=== PATIENT | male | born 1955 | race Caucasian/White ===

== ENCOUNTER 2018-12-18 18:48 | Inpatient (IN) | payer BC, OTHER ==
[~2018-12-18] VITALS: Ht 177.8 cm; Wt 79.4 kg
[~2018-12-18 18:48] MED LIST: D-ME473S2 PO; LEVO500T48 PO; OMEP20CA9 PO
[2018-12-18 19:07] VITALS: Ht 177.8 cm; Wt 79.4 kg
[2018-12-18] MEDS ORDERED: ACETAMINOPHEN 325 MG TAB PO STA (19:07)
[2018-12-18] MEDS ORDERED: CEFTRIAXONE 1 GM/50 ML (PMX) 50 ML IVPB STA (19:07)
[2018-12-18] MEDS ORDERED: SODIUM CHLORIDE 0.9% 1L BAG IV* STA (19:33)
[2018-12-18] MEDS ORDERED: ACETAMINOPHEN 325 MG TAB PO PRN (20:30)
[2018-12-18] MEDS ORDERED: ONDANSETRON 4 MG INJ IV PRN (20:30)
[2018-12-18] MEDS ORDERED: AZITHROMYCIN 500MG/NS (PMX) 250 ML IVPB ONE (20:30)
[2018-12-18] MEDS ORDERED: LIDOCAINE/MYLANTA 40 ML BTL PO STA (20:37)
[2018-12-18] MEDS ORDERED: BELLADONNA/PHENOBARBITAL TAB PO STA (20:37)
--- NOTE | 2018-12-18 21:40 | ERD ---
ER Documentation Chief Complaint Chief Complaint FEVER, BODY ACHES, VOMIT X'S 1 DAY HPI Patient is a 63-year-old male with a previous history of pneumonia presents with fever and chills. He said that it started this evening around 6:15 PM. He had shaking chills. He reports a cough as well but thought that it might be related to the MARCELA inhibitor that he is on. He was not feeling well though so he came to the emergency department with his . His heart rate was fast as well. He has had no treatment for the symptoms as of yet. He denies urinary symptoms. Symptoms have been constant. ROS All systems reviewed and are negative except as per history of present illness. Medications Home Meds Reported Medications Omeprazole* (Prilosec*) 20 Mg Capsule.dr, 20 MG PO DAILY, CAP 04/27/14 Dextromethorphan Hb-Promethazine Hcl* (Promethazine DM* Syrup) 473 Ml Syrup, 5 ML PO Q6 PRN for COUGH, ML 04/27/14 Levofloxacin* (Levaquin*) 500 Mg Tablet, 500 MG PO DAILY for 7 Days, TAB 04/27/14 Allergies Allergies: Coded Allergies: prochlorperazine (Verified Allergy, Unknown, 04/27/14) hyperactive PMhx/Soc Medical and Surgical Hx: pt denies Medical Hx, pt denies Surgical Hx Hx Alcohol Use: No Hx Substance Use: No Hx Tobacco Use: No Smoking Status: Never smoker FmHx Family History: No diabetes Physical Exam Vitals Vital Signs Date Temp Pulse Resp B/P (MAP) Pulse Ox O2 O2 Flow FiO2 Time Delivery Rate 12/18/18 101.0 120 24 132/79 95 Room Air 21:33 (96) 12/18/18 124 15 130/82 96 Room Air 20:19 (98) 12/18/18 102.4 129 20 172/91 96 19:07 (118) Physical Exam Const: Mild distress Head: Atraumatic Eyes: Normal Conjunctiva ENT: Normal External Ears, Nose and Mouth. Neck: Full range of motion. No meningismus. Resp: Decreased breath sounds bilaterally Cardio: Tachycardic rate without murmur Abd: Soft, non tender, non distended. Normal bowel sounds Skin: No petechiae or rashes Back: No midline or flank tenderness Ext: No cyanosis, or edema Neur: Awake and alert Psych: Normal Mood and Affect Result Diagram: 12/18/18191512/18/181915 Results 24 hrs Laboratory Tests Test 12/18/18 17:46 12/18/18 19:16 12/18/18 19:22 12/18/18 21:06 Urine Color STRAW Urine Clarity CLEAR Urine pH 6.0 Urine Specific 1.012 [place] Urine Ketones TRACE mg/dL Urine Nitrite NEGATIVE mg/dL Urine Bilirubin NEGATIVE mg/dL Urine NEGATIVE mg/dL Urobilinogen Urine Leukocyte NEGATIVE Melissa/ul Esterase Urine Hemoglobin NEGATIVE mg/dL Urine Glucose NEGATIVE mg/dL Urine Total NEGATIVE mg/dl Protein White Blood Count 20.6 10^3/ul Red Blood Count 4.45 10^6/ul Hemoglobin 13.7 g/dl Hematocrit 41.2 % Mean Corpuscular 92.6 fl Volume Mean Corpuscular 30.8 pg Hemoglobin Mean Corpuscular 33.3 g/dl Hemoglobin Concen t Red Cell 12.4 % Distribution Width Platelet Count 291 10^3/UL Mean Platelet 9.6 fl Volume Immature 0.500 % Granulocytes % Neutrophils % 89.1 % Lymphocytes % 3.2 % Monocytes % 6.7 % Eosinophils % 0.2 % Basophils % 0.3 % Nucleated Red 0.0 /100WBC Blood Cells % Immature 0.110 10^3/ul Granulocytes # Neutrophils # 18.3 10^3/ul Lymphocytes # 0.7 10^3/ul Monocytes # 1.4 10^3/ul Eosinophils # 0.1 10^3/ul Basophils # 0.1 10^3/ul Nucleated Red 0.0 10^3/ul Blood Cells # Prothrombin Time 12.0 Sec Prothrombin Time 0.9 Ratio INR International 0.88 Normalized Ratio Activated 25.7 Sec Partial Thrombopl ast Time Sodium Level 138 mmol/L Potassium Level 4.4 mmol/L Chloride Level 100 mmol/L Carbon Dioxide 26 mmol/L Level Anion Gap 12 Blood Urea 16 mg/dl Nitrogen Creatinine 1.15 mg/dl Est Glomerular > 60 mL/min Filtrat Rate mL/min Glucose Level 98 mg/dl Calcium Level 9.5 mg/dl Total Bilirubin 0.5 mg/dl Direct Bilirubin 0.00 mg/dl Indirect 0.5 mg/dl Bilirubin Aspartate Amino 22 IU/L Transf (AST/SGOT) Alanine 15 IU/L Aminotransferase (ALT/SGPT) Alkaline 84 IU/L Phosphatase Troponin I < 0.012 ng/ml Total Protein 8.4 g/dl Albumin 4.7 g/dl Globulin 3.70 g/dl Albumin/Globulin 1.27 Ratio POC Venous 1.6 mmol/L Lactate Lactic Acid Level 2.0 mmol/L Current Medications Medications Dose Sig/Lionel Start Time Status Last (Trade) Ordered Route PRN Stop Time Admin Dose Reason Admin 650 mg ONCE STAT 12/18/18 DC 12/18/18 Acetaminophen PO 19:07 19:38 (Tylenol 12/18/18 19:08 Tab) Ceftriaxone 50 ml @ ONCE STAT 12/18/18 DC 12/18/18 Sodium 100 mls/hr IVPB 19:07 19:38 12/18/18 19:36 Sodium 2,380 ml BOLUS OVER 2 12/18/18 DC 12/18/18 Chloride HOURS STAT 19:33 19:37 (NS) IV* 12/18/18 19:35 Azithromycin 250 ml @ ONCE ONCE 12/18/18 DC 12/18/18 250 mls/hr IVPB 20:30 20:51 12/18/18 21:29 Ondansetron 4 mg BRIDGE ORDER 12/18/18 HCl (Zofran PRN IV 20:30 Inj) NAUSEA/VOMITI 12/19/18 20:29 NG 650 mg ER BRIDGE 12/18/18 Acetaminophen PRN PO 20:30 (Tylenol .MILD PAIN 12/19/18 20:29 Tab) 1-3 OR TEMP 40 ml ONCE STAT 12/18/18 DC 12/18/18 Miscellaneous PO 20:37 20:51 Medication 12/18/18 20:38 (Gi Cocktail (2)) [place]/ 2 tab ONCE STAT 12/18/18 DC Phenobarbital PO 20:37 () 12/18/18 20:38 Procedures/MDM EKG read by me: Rate/Rhythm: Sinus tachycardia Intervals: Normal Impression: Tachycardia without ischemia Chest X-ray 1V Interpreted by me: Soft Tissue: No acute abnormalities Bones: No acute abnormalities Mediastinum/Cardiac Silhouette/Lungs: Mild right lower lobe haziness consistent with infiltrate Sepsis Documentation: Patient's infectious symptoms have not stabilized and the patient is at risk of rapid decompensation. The patient will be admitted for careful hydration, antibiotic therapy, and infectious source control. SEVERE SEPSIS CRITERIA: Infectious source: Pneumonia End organ damage indicated by: No endorgan damage at this time SEPSIS MANAGEMENT Time of recognition of sepsis: 1915. Time of recognition of severe sepsis: No severe sepsis at this time. Time of recognition of septic shock: No septic shock at this time. 3 HOUR BUNDLE Blood cultures x 2 before broad-spectrum antibiotics: Yes 30 ml/kg NS bolus completed Initial lactate 1.6 Repeat lactate 2.0 SEPTIC SHOCK ASSESSMENT: No lactic acid > 4.0 No persistent hypotension (SBP < 90 or 40 mmHg drop, MAP < 65) despite 30 mL/kg IV fluid bolus VOLUME REASSESSMENT FOR SEPTIC SHOCK: No septic shock at this time PERSISTENT HYPOTENSION TREATMENT: Comfort care no Central line not Required Vasopressor started not required I considered further perfusion assessment with CVP measurement, SCVO2, bedside ultrasound volume assessment, passive leg raise, trial of further fluid bolus. And proceeded with 30 ml/kg fluid bolus of NSS, broad spectrum antibiotics, and admission. I spoke with Dr. Funes from the panel team to admission to a medical surgical bed. The patient feels better after treatment with Tylenol, fluids, and antibiotics. Cultures are pending. CRITICAL CARE Critical care time 35 minutes Emergent fluid management while maintaining close respiratory support. Provision of immediate and broad-spectrum antibiotic therapy. Simultaneous assessment for possible sources in order to direct targeted therapy. Consideration for invasive and chemical support to prevent cardiopulmonary collapse. Critical care time is independent of procedures performed. Departure Diagnosis: Primary Impression: Sepsis Sepsis type: sepsis due to unspecified organism Qualified Codes: A41.9 - Sepsis, unspecified organism Condition: DRU Arce MD Dec 18, 2018 21:40
[2018-12-18 22:20] VITALS: BP 123/67; PULSE 117; RESP 18
--- NOTE | 2018-12-18 23:54 | HP ---
Date/Time of Note Date/Time of Note DATE: 12/18/18 TIME: 23:54 Assessment/Plan VTE Prophylaxis Pharmacological prophylaxis: heparin Lines/Catheters IV Catheter Type (from Nrs): [place] Assessment/Plan Assessment/Plan Sepsis, questionable respiratory source -IV fluid -IV antibiotic -Cultures pending -Infectious disease on board Bacteremia -Only 1 culture positive so far, likely contaminant however due to significant elevation of white count, may possibly be real -Infectious disease on board -Repeat cultures Anemia -Mild -Monitor outpatient Result Diagram: 12/18/18 1916 12/18/18 1916 Results 24hrs Laboratory Tests Test 12/18/18 17:46 12/18/18 19:16 12/18/18 19:22 12/18/18 21:06 Urine Color STRAW Urine Clarity CLEAR Urine pH 6.0 Urine Specific 1.012 [place] Urine Ketones TRACE A Urine Nitrite NEGATIVE Urine Bilirubin NEGATIVE Urine Urobilinogen NEGATIVE Urine Leukocyte NEGATIVE Esterase Urine Hemoglobin NEGATIVE Urine Glucose NEGATIVE Urine Total Protein NEGATIVE White Blood Count 20.6 #H Red Blood Count 4.45 L Hemoglobin 13.7 L Hematocrit 41.2 L Mean Corpuscular 92.6 Volume Mean Corpuscular 30.8 Hemoglobin Mean Corpuscular 33.3 Hemoglobin Concent Red Cell 12.4 Distribution Width Platelet Count 291 Mean Platelet Volume 9.6 Immature 0.500 H Granulocytes % Neutrophils % 89.1 H Lymphocytes % 3.2 L Monocytes % 6.7 Eosinophils % 0.2 Basophils % 0.3 Nucleated Red Blood 0.0 Cells % Immature 0.110 H Granulocytes # Neutrophils # 18.3 H Lymphocytes # 0.7 L Monocytes # 1.4 H Eosinophils # 0.1 Basophils # 0.1 Nucleated Red Blood 0.0 Cells # Prothrombin Time 12.0 Prothrombin Time 0.9 Ratio INR International 0.88 Normalized Ratio Activated 25.7 Partial Thromboplast Time Sodium Level 138 Potassium Level 4.4 Chloride Level 100 Carbon Dioxide Level 26 Anion Gap 12 Blood Urea Nitrogen 16 Creatinine 1.15 Est Glomerular > 60 Filtrat Rate mL/min Glucose Level 98 Calcium Level 9.5 Total Bilirubin 0.5 Direct Bilirubin 0.00 Indirect Bilirubin 0.5 Aspartate Amino 22 Transf (AST/SGOT) Alanine 15 Aminotransferase (AL T/SGPT) Alkaline Phosphatase 84 Troponin I < 0.012 Total Protein 8.4 H Albumin 4.7 Globulin 3.70 H Albumin/Globulin 1.27 Ratio POC Venous Lactate 1.6 Lactic Acid Level 2.0 Test 12/18/18 23:01 Bedside Glucose 101 HPI/ROS Admit Date/Time Admit Date/Time Dec 18, 2018 at 20:30 Hx of Present Illness This is a 63-year-old male with a history of hypertension, anemia, GERD, prostate cancer status post removal in March of last year. Patient presents the ER complaining of fever/chills, shortness of breath, dry cough, which started few hours ago around 1700. He also reported lack of energy and vague muscular type pain in the groin area and in the upper thigh, which she attributed to possible flu. He said he checked his temperature at home. Initially it was 100.8 with repeat being around 101.4. Denied sick contact, recent travel. He said he had similar symptoms 5 years ago for which he said he came to the hospital and was treated for pneumonia in the ER. When he presented to the ER, he was febrile with a temperature of 102.4, ta chycardic with a heart rate of 129. Blood pressure 172/91. WBC 20,000. PMH/Family/Social Past Medical History Medical History: other (See HPI) Medications Current Medications Ondansetron HCl (Zofran Inj) 4 mg BRIDGE ORDER PRN IV NAUSEA/VOMITING; Start 12/18/18 at 20:30; Stop 12/19/18 at 20:29 Acetaminophen (Tylenol Tab) 650 mg ER BRIDGE PRN PO .MILD PAIN 1-3 OR TEMP; Start 12/18/18 at 20:30; Stop 12/19/18 at 20:29 Coded Allergies: prochlorperazine (Verified Allergy, Unknown, 12/26/18) hyperactive Past Surgical History Past Surgical Hx: other (See HPI) Family History Significant Family History: no pertinent family hx Social History Alcohol Use: none Smoking Status: Never smoker Drug Use: none Exam/Review of Systems Vital Signs Vitals Vital Signs Date Temp Pulse Resp B/P (MAP) Pulse Ox O2 O2 Flow FiO2 Time Delivery Rate 12/18/18 99.7 23:14 12/18/18 115 24 132/79 96 Room Air 22:23 (96) Exam Constitutional: alert, oriented, well developed Head: normocephalic, atraumatic Eyes: EOMI, PERRL Respiratory: clear to auscultation, normal air movement Cardiovascular: other (Tachycardic with regular rhythm) Gastrointestinal: soft Extremities: normal pulses GAURI MUÑOZ MD Dec 18, 2018 23:54
[2018-12-19] MEDS ORDERED: ZOLPIDEM 5 MG TAB PO PRN
[2018-12-19] MEDS ORDERED: IPRATROPIUM (NEB) 0.5 MG/2.5 ML AMP NEB PRN
[2018-12-19] MEDS ORDERED: NACL 0.9% 3 ML SYG IV SCH
[2018-12-19] MEDS ORDERED: LISI40TA3 PO (00:08)
[2018-12-19] MEDS ORDERED: CHOL100062 PO (00:08)
[2018-12-19] MEDS ORDERED: ALPR0.25 PO (00:08)
[2018-12-19] MEDS ORDERED: SILD20TA PO (00:08)
[2018-12-19] MEDS ORDERED: ASPI-676 PO (00:08)
[2018-12-19] MEDS ORDERED: KETO120S3 (00:08)
[2018-12-19] MEDS ORDERED: PRAV10TA43 PO (00:08)
[2018-12-19] MEDS: SOD CHLORIDE 0.9% 1,000 ML IV SCH ×2 (00:09→10:36)
[2018-12-19] MEDS ORDERED: DIPHENHYDRAMINE 50 MG CAP PO ONE (01:30)
[2018-12-19 02:00] VITALS: BP 127/70; PULSE 102; RESP 18
[2018-12-19] MEDS: PANTOPRAZOLE (EC) 40 MG TAB PO SCH (06:00)
[2018-12-19] MEDS ORDERED: CEFTRIAXONE 1 GM/50 ML (PMX) 50 ML IVPB SCH (06:00)
[2018-12-19 08:15] VITALS: BP 151/74; PULSE 110; RESP 18
[2018-12-19] MEDS: HEPARIN 5,000 UNIT/1 ML VIAL SC SCH ×2 (08:31→20:32)
[2018-12-19] MEDS ORDERED: NON-FORMULARY/PATIENT OWN MED (Omeprazole* (Prilosec*) 20 MG) PO SCH (09:00)
[2018-12-19] MEDS: ACETAMINOPHEN 325 MG TAB PO PRN ×3 (09:17→21:43)
[2018-12-19] MEDS ORDERED: VANCOMYCIN IV PER PHARMACY XX SCH (10:30)
[2018-12-19] MEDS: LEVOFLOXACIN 500MG/D5W (PMX) 100 ML IVPB SCH (10:37)
[2018-12-19] MEDS: LISINOPRIL 20 MG TAB PO SCH (10:56)
[2018-12-19] MEDS ORDERED: LEVOFLOXACIN 750MG/D5W (PMX) 150 ML IVPB SCH (11:00)
[2018-12-19] MEDS ORDERED: VANCOMYCIN HCL 1.5 GM in SOD CHLORIDE 0.9% 250 ML IVPB SCH (13:00)
[2018-12-19] MEDS: ONDANSETRON 4 MG INJ IV PRN (13:25)
[2018-12-19 14:00] VITALS: BP 141/75; PULSE 110; RESP 18
--- NOTE | 2018-12-19 16:19 | PN ---
Date/Time of Note Date/Time of Note DATE: 12/19/18 TIME: 16:19 Objective Vitals Vital Signs Date Temp Pulse Resp B/P (MAP) Pulse Ox O2 O2 Flow FiO2 Time Delivery Rate 12/19/18 100.5 16:12 12/19/18 110 18 141/75 95 Room Air 14:00 (97) Intake and Output 12/18/18 12/18/18 12/19/18 1515:00 23:00 07:00 IntakeIntake Total 550 ml OutputOutput Total 350 ml BalanceBalance 200 ml Results Result Diagram: 12/19/18 0556 12/19/18 0556 Medications Medications Current Medications Acetaminophen (Tylenol Tab) 650 mg ER BRIDGE PRN PO .MILD PAIN 1-3 OR TEMP Last administered on 12/19/18at 01:40; Admin Dose 650 MG; Start 12/18/18 at 20:30; Stop 12/19/18 at 20:29 Sodium Chloride 1,000 ml @ 50 mls/hr Q20H IV Last administered on 12/19/18at 10:36; Admin Dose 50 MLS/HR; Start 12/18/18 at 23:57 IV Flush (NS 3 ml) 3 ml PER PROTOCOL IV ; Start 12/19/18 at 00:00 Ondansetron HCl (Zofran Inj) 4 mg Q6H PRN IV NAUSEA/VOMITING Last administered on 12/19/18at 13:25; Admin Dose 4 MG; Start 12/19/18 at 00:00 Acetaminophen (Tylenol Tab) 650 mg Q6H PRN PO .PAIN 1-3 OR TEMP Last administered on 12/19/18at 15:41; Admin Dose 650 MG; Start 12/19/18 at 00:00 Heparin Sodium (Porcine) (Heparin (5000 Units/1ml)) 5,000 unit Q12 SC Last administered on 12/19/18at 08:31; Admin Dose 5,000 UNIT; Start 12/19/18 at 09:00 Ipratropium [place] (Atrovent 0.02% (Neb)) 0.5 mg Q2H RESP THERAPY PRN NEB SHORTNESS OF BREATH; Start 12/19/18 at 00:00 Zolpidem Tartrate (Ambien) 10 mg HS PRN PO INSOMNIA; Start 12/19/18 at 00:00 Pantoprazole (Protonix Tab) 40 mg DAILY@06 PO Last administered on 12/19/18at 06:00; Admin Dose 40 MG; Start 12/19/18 at 06:00 Alprazolam (Xanax) 0.25 mg Q8H PRN PO ANXIETY; Start 12/19/18 at 10:00 Aspirin (Aspirin) 81 mg DAILY PO ; Start 12/20/18 at 09:00 Cholecalciferol (Vitamin D) 1,000 unit DAILY PO ; Start 12/20/18 at 09:00 Atorvastatin Calcium (Lipitor) 10 mg HS PO ; Start 12/19/18 at 21:00 Vancomycin HCl (Vanco Iv Per Pharmacy) VANCOMYCIN PER PHARMACY PER PROTOCOL XX ; Start 12/19/18 at 10:30 Levofloxacin/ Dextrose 100 ml @ 100 mls/hr Q24H IVPB Last administered on 12/19/18at 10:37; Admin Dose 100 MLS/HR; Start 12/19/18 at 10:30 Lisinopril (Zestril) 40 mg DAILY PO Last administered on 12/19/18at 10:56; Admin Dose 40 MG; Start 12/19/18 at 10:30 Vancomycin HCl 250 ml @ 125 mls/hr Q12H IVPB ; Start 12/20/18 at 01:00 Ibuprofen (Motrin) 400 mg Q6H PRN PO MILD PAIN(1-3) OR TEMP>38C; Start 12/19/18 at 16:30; Status UNV VTE Prophylaxis Risk score (from [facility])>0 risk: 1 SCD applied (from [facility]): Yes Lines/Catheters IV Catheter Type: Marie in Place: No Assessment/Plan Hospital Course Subjective Patient feeling better than when he was admitted however still having occasional chills and fever Objective Physical exam General: Patient is laying in bed and answers questions appropriately Mentation: Patient is alert and oriented 4, Head: Normocephalic atraumatic Eyes: EOMI, pupils reactive to light Neck: Supple, nontender, midline Respiratory: Clear to auscultation bilaterally Cardiovascular: regular rate, no obvious murmurs Gastrointestinal: non-tender to palpation, bowel sounds heard. Neurological: Moves all extremities spontaneously Skin: No new skin lesions Assessment and plan Sepsis, questionable respiratory source versus bacteremia -IV fluid -IV antibiotic -Cultures pending -Infectious disease on board Questionable upper respiratory infection -No significant shortness of breath -However did have persistent cough preceding this admission -IV antibiotic -Chest x-ray clear -Flu negative Bacteremia -Only 1 culture positive so far, likely contaminant however due to significant elevation of white count, may possibly be real -Infectious disease on board -Repeat cultures Anemia -Mild -Monitor outpatient Disposition -Infectious disease consultation pending, continue IV antibiotics, pending culture results, unconfirmed source of infection however may possibly be a viral etiology versus a true bacteremia. MIA CAMPBELL Dec 19, 2018 16:19
[2018-12-19] MEDS ORDERED: IBUPROFEN 400 MG TAB PO PRN (16:30)
--- NOTE | 2018-12-19 16:32 | CONS ---
DATE OF ADMISSION: 12/18/2018 DATE OF CONSULTATION: 12/19/2018 TYPE OF CONSULTATION: Infectious disease. REASON FOR CONSULTATION: Antibiotic management. HISTORY OF PRESENT ILLNESS: Mia Holder is a 63-year-old male who comes in on 12/18/2018 with fev er, body aches and vomiting for 1 day. The patient has a history of pneumonia in the past, presents with fever and chills. He noted that on 12/18/2018 at 6:15 p.m. he had shaking chills. He has a cou gh, which he thought might be related to the MARCELA inhibitor that he is on. FAMILY HISTORY: Noncontributory. SOCIAL HISTORY: Does not smoke, drink or abuse drugs. ALLERGIES: PROCHLORPERAZINE, HE COMES HYPERACTIVE. MEDICATIONS: Per chart. REVIEW OF SYSTEMS: Noncontributory. PHYSICAL EXAMINATION: VITAL SIGNS: T-max of 102.4. SKIN: Without generalized rash. HEENT: Within normal limits. NECK: Supple. LYMPH NODES: None palpable. CHEST: Decreased breath sounds at the bases. HEART: Without murmur or gallop. He is tachycardic, pulse of 129. ABDOMEN: Soft, nontender without organosplenomegaly or masses. EXTREMITIES: Without cyanosis, clubbing or edema. RECTAL AND GENITAL: Deferred. NEUROLOGIC: No focal neurological abnormality. HOSPITAL COURSE: White count 20.6, H and H of 13.7 and 41.7, platelet count 291,000. BUN and creati nine is 16/1.15 with 89% neutrophils. The patient was started on ceftriaxone and azithromycin for th e possibility of community-acquired pneumonia. Blood cultures were done. Chest x-ray shows no conso lidative pulmonary infiltrates noted. No new abnormality demonstrated. Urine is negative for nitrit e and leukocyte esterase. The patient has gram-positive cocci in pairs and chains and he is on vanco mycin alone at this point. The etiology of his blood culture positivity is unclear. We will repeat the blood cultures to worry about endocarditis. He still probably has a tracheobronchitis. He may n eed a 2D echocardiogram. I will dictate my findings to the hospitalist. Dictated By: MICHELLE CONRAD MD, JD/CONRADO Conf#: [id number] DID#: [id number] CC: MIA CAMPBELL MD; GAURI MUÑOZ MD;*[facility]*
[2018-12-19 20:00] VITALS: BP 131/62; PULSE 104; RESP 18
[2018-12-19] MEDS: ATORVASTATIN 10 MG TAB PO SCH (20:31)
[2018-12-19] MEDS ORDERED: AZITHROMYCIN 500MG/NS (PMX) 250 ML IVPB SCH (21:00)
[2018-12-19] MEDS ORDERED: DIPHENHYDRAMINE 25 MG CAP PO ONE (21:30)
[2018-12-20] MEDS: VANCOMYCIN 1 GM 250 ML IVPB SCH ×2 (00:32→12:57)
[2018-12-20 02:00] VITALS: BP 91/52; PULSE 74; RESP 17
[2018-12-20] MEDS: PANTOPRAZOLE (EC) 40 MG TAB PO SCH (05:42)
[2018-12-20] MEDS: SOD CHLORIDE 0.9% 1,000 ML IV SCH ×2 (05:47→12:10)
[2018-12-20] MEDS: ACETAMINOPHEN 325 MG TAB PO PRN ×3 (08:04→20:31)
[2018-12-20] MEDS: HEPARIN 5,000 UNIT/1 ML VIAL SC SCH ×2 (08:06→20:25)
[2018-12-20] MEDS: LISINOPRIL 20 MG TAB PO SCH (08:08)
[2018-12-20 08:11] VITALS: BP 115/61; PULSE 90; RESP 24
[2018-12-20] MEDS: ASPIRIN 81 MG TAB PO SCH (08:11)
[2018-12-20] MEDS: CHOLECALCIFEROL 1,000 UNIT TAB PO SCH (08:11)
[2018-12-20] MEDS: LEVOFLOXACIN 500MG/D5W (PMX) 100 ML IVPB SCH (10:02)
--- NOTE | 2018-12-20 13:16 | PN ---
Date/Time of Note Date/Time of Note DATE: 12/20/18 TIME: 13:14 Objective Vitals Vital Signs Date Temp Pulse Resp B/P (MAP) Pulse Ox O2 O2 Flow FiO2 Time Delivery Rate 12/20/18 99.6 11:29 12/20/18 90 24 115/61 97 08:11 (79) 12/20/18 Room Air 02:00 Intake and Output 12/19/18 12/19/18 12/20/18 1515:00 23:00 07:00 IntakeIntake Total 2100 ml 1200 ml 250 ml OutputOutput Total 800 ml 500 ml BalanceBalance 1300 ml 700 ml 250 ml Results Result Diagram: 12/20/18 0443 12/20/18 0443 Medications Medications Current Medications Sodium Chloride 1,000 ml @ 50 mls/hr Q20H IV Last administered on 12/20/18at 12:10; Admin Dose 50 MLS/HR; Start 12/18/18 at 23:57 IV Flush (NS 3 ml) 3 ml PER PROTOCOL IV ; Start 12/19/18 at 00:00 Ondansetron HCl (Zofran Inj) 4 mg Q6H PRN IV NAUSEA/VOMITING Last administered on 12/19/18at 13:25; Admin Dose 4 MG; Start 12/19/18 at 00:00 Acetaminophen (Tylenol Tab) 650 mg Q6H PRN PO .PAIN 1-3 OR TEMP Last administered on 12/20/18at 08:04; Admin Dose 650 MG; Start 12/19/18 at 00:00 Heparin Sodium (Porcine) (Heparin (5000 Units/1ml)) 5,000 unit Q12 SC Last administered on 12/20/18at 08:06; Admin Dose 5,000 UNIT; Start 12/19/18 at 09:00 Ipratropium [place] (Atrovent 0.02% (Neb)) 0.5 mg Q2H RESP THERAPY PRN NEB SHORTNESS OF BREATH; Start 12/19/18 at 00:00 Zolpidem Tartrate (Ambien) 10 mg HS PRN PO INSOMNIA; Start 12/19/18 at 00:00 Pantoprazole (Protonix Tab) 40 mg DAILY@06 PO Last administered on 12/20/18at 05:42; Admin Dose 40 MG; Start 12/19/18 at 06:00 Alprazolam (Xanax) 0.25 mg Q8H PRN PO ANXIETY; Start 12/19/18 at 10:00 Aspirin (Aspirin) 81 mg DAILY PO Last administered on 12/20/18 08:11; Admin Dose 81 MG; Start 12/20/18 at 09:00 Cholecalciferol (Vitamin D) 1,000 unit DAILY PO Last administered on 12/20/18 08:11; Admin Dose 1,000 UNIT; Start 12/20/18 at 09:00 Atorvastatin Calcium (Lipitor) 10 mg HS PO Last administered on 12/19/18 20:31; Admin Dose 10 MG; Start 12/19/18 at 21:00 Vancomycin HCl (Vanco Iv Per Pharmacy) VANCOMYCIN PER PHARMACY PER PROTOCOL XX ; Start 12/19/18 at 10:30 Levofloxacin/ Dextrose 100 ml @ 100 mls/hr Q24H IVPB Last administered on 12/20/18 10:02; Admin Dose 100 MLS/HR; Start 12/19/18 at 10:30 Lisinopril (Zestril) 40 mg DAILY PO Last administered on 12/20/18 08:08; Admin Dose 40 MG; Start 12/19/18 at 10:30 Vancomycin HCl 250 ml @ 125 mls/hr Q12H IVPB Last administered on 12/20/18 12:57; Admin Dose 125 MLS/HR; Start 12/20/18 at 01:00 Ibuprofen (Motrin) 400 mg Q6H PRN PO MILD PAIN(1-3) OR TEMP>38C Last administered on 12/19/18 20:31; Admin Dose 400 MG; Start 12/19/18 at 16:30 VTE Prophylaxis Risk score (from Nsg)>0 risk: 4 SCD applied (from Nsg): No SCD contraindication: other Lines/Catheters IV Catheter Type: Marie in Place: No Assessment/Plan Hospital Course Subjective Patient feeling better Objective Physical exam General: Patient is laying in bed and answers questions appropriately Mentation: Patient is alert and oriented 4, Head: Normocephalic atraumatic Eyes: EOMI, pupils reactive to light Neck: Supple, nontender, midline Respiratory: Clear to auscultation bilaterally Cardiovascular: regular rate, no obvious murmurs Gastrointestinal: non-tender to palpation, bowel sounds heard. Neurological: Moves all extremities spontaneously Skin: No new skin lesions Assessment and plan Sepsis, secondary to bacteremia -IV fluid -IV antibiotic -Cultures pending, showing strep -Infectious disease on board Questionable upper respiratory infection -No significant shortness of breath -However did have persistent cough preceding this admission -IV antibiotic -Chest x-ray clear -Flu negative Bacteremia, strep so far -Infectious disease on board -Repeat cultures -Continue IV antibiotic, taper per ID recommendations -Patient does have a history of rheumatic disease, will get echocardiogram -patient was on antibiotics for 5 years as a child Anemia -Mild -Monitor outpatient Disposition -ID recommendations appreciated, continue IV antibiotic for strep bacteremia MIA CAMPBELL Dec 20, 2018 13:16
--- NOTE | 2018-12-20 13:36 | CONS ---
Assessment/Plan Assessment/Plan Hospital Course (Demo Recall) ID PROGRESS NOTE CURRENT ABX: DAY # =>Ceftriaxone s/p Vanco IV s/p Azith s/p Levaquin 12/20/1844212/20/18442 HPI REVIEWED * 63-year-old male with a history of hypertension, anemia, GERD, prostate cancer status post removal in March of last year. Patient presents the ER complaining of fever/chills, shortness of breath, dry cough, which started few hours ago around 1700. He also reported lack of energy and vague muscular type pain in the groin area and in the upper thigh, which she attributed to possible flu. He said he checked his temperature at home. Initially it was 100.8 with repeat being around 101.4. Denied sick contact, recent travel. He said he had similar symptoms 5 years ago for which he said he came to the hospital and was treated for pneumonia in the ER. When he presented to the ER, he was febrile with a temperature of 102.4, tachycardic with a heart rate of 129. Blood pressure 172/91. WBC 20,000. 24H INTERVAL SUMMARY * VSS, NAD, subjective fevers w/low grade temps * I met with patient and spouse today -- lengthy discussion beside regarding possible sources of STREP C bacteremia. * Strep C is an Upper respiratory eduardo can become a pathogen -- He has not aBD/Flank pain/ no open wounds, no joint swelling pain. No known dental infection, nor hx of periodontal disease, he has mild dry cough, mild SHEPHERD, denies nasal gtt, no chest congestion. We must look into SBE as a possible s ource. DIAGNOSTIC IMAGING * 12/19/18 CXR: IMPRESSION: 1. No consolidative pulmonary infiltrates noted. 2. No new abnormality demonstrated when compared to the previous study. * 12/19/18 KNEE XR: 1. No acute osseous abnormality.2. Cndr-lc-pfguyorp osteoarthritis, most notable at the medial tibio-femoral compartment. 3. Proximal tibial exostosis. * 12/19/18 BILAT HIP XR: 1. Iaks-tx-nikvpkts bilateral hip joint osteoarthritis. * MICRO * INFLUENZA A & B BY EIA Final INFLU A&B BY EIA INFLUENZA A NEGATIVE (Ref Range Neg) INFLUENZA B NEGATIVE (Ref Range Neg) * 12/18/18 BCx (-) * 12/18/18 BCx (+) STREP C 1/2 bottles from ED * 12/18/18 Urine Cx (+) URINE CULTURE Final Organism 1 MIXED GRAM POSITIVE ORGANISMS COLONY COUNT 10,000 - 20,000 CFU/ml PHYSICAL EXAMINATION: GENERAL: VSS, NAD HEENT: AT, NC, NECK: Supple, CHEST: Rise symmetrical HEART: Pulse RRR ABDOMEN: Benign EXTREMITIES: Warm, dry SKIN: No rash, no diaphoresis ID ASSESSMENT 63 yo M admit with: 1. Sepsis on admission w/fevers/chills, leukocytosis 2. Acute tracheobronchitis probable community acquired PNA 3. Polymicrobial bacteruria -- probable contaminant vs possible early UTI 4. s/p Prostatectomy MAR 2018 5. GERD 6. Osteoarthritis bilateral hips, knees ABX ALLERGIES: None to ABX INVASIVES: PIV CURRENT ABX: DAY # ID RECOMMENDATIONS/PLAN: 1. Continue Ceftriaxone 2gm IB daily -- unclear source ? Waiting for 2D ECHO. 2. I met with patient and spouse today -- lengthy discussion beside regarding possible sources of STREP C bacteremia. * Strep C is an Upper respiratory eduardo can become a pathogen -- He has not aBD/Flank pain/ no open wounds, no joint swelling pain. No known dental infection, nor hx of periodontal disease, he has mild dry cough, mild SHEPHERD, denies nasal gtt, no chest congestion. We must look into SBE as a possible source. 3. UpToDate reviewed as below -- regarding STREP C diagnostic considerations and treatment. [email or web address]/content [email or web address]-g-une-ukrhx-c-zxdkuzacrkrkv-infection?search=strep%[email or web address]&source=search_result&selected Title=1~[email or web address]&usage_type=default&display_rank=1 Group C and group G streptococcal infection Author: Glen Venegas MD Section [employer]ine Machine Tender: Sammy Mohan MD Gaston [employer] Machine Tender: Citlaly Fajardo MD Contributor Disclosures All topics are updated as new evidence becomes available and our peer review process is complete. Literature review current through: October 2018. | This topic last updated: Sep 22, 2018. CLINICAL MANIFESTATIONSGroup C streptococci (GCS) and group G streptococci (GGS) have been implicated in a wide variety of human infections: pharyngitis, a range of skin and soft tissue infections (including impetigo, infected ulcers, wound infections, cellulitis, and necrotizing soft tissue infection), bacteremia, endocarditis, septic arthritis, osteomyelitis, pleuropulmonary infections, peritonitis, intra-abdominal abscess, meningitis, puerperal sepsis, sepsis, and streptococcal toxic shock-like syndrome [21-24]. Bacteremia GCS and GGS together accounted for 30 percent of beta-hemolytic str eptococcal bacteremia among adults in a hospital-based series [25]. In a review of 88 cases of GCS bacteremia, the mean age was 45 years, and 19 percent were younger than 18 years of age [26]. Underlying medical conditions were present in 74 percent, most commonly cardiovascular disease, malignancy, or immunosuppression. The most common sources of GCS bacteremia were thought to be the upper respiratory tract, gastrointestinal tract (including a cluster of cases due to S. equi subsp zooepidemicus from the consumption of unpasteurized milk), and skin sources, such as wounds, ulcers, and injection drug use. Clinical syndromes associated with GCS bacteremia included endocarditis, meningitis, cutaneous infection, intra-abdominal infection, pneumonia, sinusitis, pharyngitis, epiglottitis, arthritis, osteomyelitis, mycotic aneurysm, fistula infection, genitourinary tract infection, and pericarditis. Mortality is approximately 25 percent [26,27]. Case series of group G streptococcal bacteremia have described similar clinical features: advanced age, malignancy, diabetes, and alcohol use as underlying conditions; the skin as the most common source; and endocarditis and bone and joint infections as associated clinical syndromes [28-36]. Endocarditis In some series of patients with invasive GCS or GGS infection, bacteremia has been associated with endocarditis in 25 to 50 percent of cases [ 26,30,37,38]. Endocarditis has been reported both in patients with preexisting valvular disease and in patients with previously normal valves. Embolic complications are common and may be associated with large valvular vegetations. Some authors favor consideration of early valve replacement because of the risk of embolic events, especially stroke [39]. Arthritis Septic arthritis is a relatively frequent presentation of invasive GCS or GGS infection, with or without detectable bacteremia [40-44]. Patients are frequently older adults with underlying chronic illness, and there appears to be a male predominance. Preexisting arthritis and the presence of a prosthetic joint are common predisposing factors. The knee is involved most often; polyarticular infection occurs occasionally and should suggest the possibility of concomitant endocarditis. Skin and soft tissue infections GCS and GGS have been implicated as a cause of skin and soft tissue infection, particularly in the setting of preexisting vascular or lymphatic compromise. Recurrent lower extremity cellulitis has been described after saphenous venectomy for coronary artery bypass surgery, sometimes in association with tinea pedis and colonization of the web space between the toes [45,46]. Anal colonization may also be a source for recurrent infection [47]. Recurrent GGS bacteremia occurred in 14 percent of patients in one series and was frequently associated with underlying lymphatic disorders [34 ]. Necrotizing fasciitis similar to that caused by S. pyogenes has also been observed, in some cases associated with streptococcal toxic shock-like syndrome [22,48,49]. Pharyngitis Epidemic pharyngitis has been reported from foodborne infection with GCS or GGS, particularly in semiclosed populations such as installations or schools [15,50,51]. Dairy products, egg salad, and chicken salad have been implicated as sources. Respiratory outbreaks of GGS pharyngitis via hnbpwf-iw-cifenr transmission have also been described [52]. In contrast, the role of GCS and GGS in sporadic or endemic pharyngitis is controversial. Some studies have found higher isolation rates of GCS or GGS in throat cultures of individuals with symptomatic pharyngitis compared with asymptomatic controls, whereas others have not [53-56 ]. One retrospective study in a large community-based health system evaluated results of [id number],578 throat cultures in children from 0 to 18 years of age. Non- group A beta-hemolytic streptococci were recovered in 3.1 percent of encounters, compared with group A streptococci (GAS or S. pyogenes) identified in 22.8 percent. While the non-group A streptococci (NGAS) were not further characterized, they were presumed to represent predominantly GCS or GGS. Patient s with NGAS had significantly lower rates of fever, throat erythema, and lymphadenopathy and higher rates of cough and rhinorrhea compared with those with GAS. These findings suggested that a higher proportion of NGAS patients were carriers with viral pharyngitis compared to the GAS group [57]. Thus, with the possible exception of a suspected outbreak, the isolation of GCS or GGS in a throat culture from a patient with pharyngitis is of uncertain significance. GCS and GGS are not detected by rapid antigen tests for GAS pharyngitis because they lack the group A antigen that is the target of these tests. ```````````` TREATMENTGroup C streptococci (GCS) and group G streptococci (GGS) are susceptible to beta-lactam antibiotics. Penicillin is considered the drug of choice for treatment of GCS and GGS infections [21,59,60]: ?Treatment of GCS or GGS cellulitis consists of penicillin G 2 million units intravenously (IV) every 4 to 6 hours (for children: 50,000 units/kg/dose, not to exceed adult dose). ?Treatment of bacteremia, severe invasive soft tissue infection, endocarditis, osteomyelitis, or septic arthritis due to GCS or GGS consists of penicillin G 3 million units IV every 4 hours (for children: 75,000 units/kg/dose, not to exce ed adult dose). Third-generation cephalosporins are also highly active and are suitable alternative agents. Options include cefotaxime 2 g IV every 6 hours (for children: 50 mg/kg/dose IV every 6 hours, not to exceed adult dose) or ceftriaxone 2 g IV every 24 hours (for children: 50 mg/kg/dose IV every 24 hours, not to exceed adult dose). The duration of treatment should be tailored to clinical response and generally should be continued until at least three days after resolution of fever and other clinical signs. General guidelines are 7 to 10 days for cellulitis, 14 days for bacteremia, 14 to 28 days for severe invasive soft tissue infection, 28 to 42 days for osteomyelitis or septic arthritis, and 28 to 42 days for endocarditis. Issues related to treatment of specific infections are discussed further separately. (See "Antimicrobial therapy of [place] valve endocarditis" and "Necrotizing soft tissue infections".) For patients with a history of severe hypersensitivity reactions to beta-lactam antibiotics, vancomycin may be used. Linezolid and daptomycin are active in vitro, but clinical experience in treating GCS and GGS infections with either agent is limited. The prevalence of resistance to macrolides is highly variable but has been as high as 15 to 25 percent in some areas and is sometimes associated with inducible clindamycin resistance [60-62]. High-level resistance to fluoroquinolones has been described in a small percentage of clinical isolates [59,63]. Treatment of pharyngitis when GCS or GGS has been isolated from a throat culture may be indicated in the setting of a point-source (eg, foodborne) outbreak or in sporadic cases in which clinical features suggest pyogenic bacterial infection (ie, fever, tonsillar exudates, tender cervical lymphadenopathy, and absence of cough or rhinorrhea) [64]. The same regimens recommended for S. pyogenes are suitable for GCS/GGS pharyngitis. However, GCS/GGS pharyngitis is not known to trigger acute rheumatic fever; therefore, a treatment course of 5 days (rather than 10 days) is reasonable. (See "Treatment and prevention of streptococcal pharyngitis".) SUMMARY Consultation Date/Type/Reason Admit Date/Time Dec 18, 2018 at 20:30 Initial Consult Date Date/Time of Note DATE: 12/20/18 TIME: 13:35 Exam/Review of Systems Exam Vitals Vital Signs Date Temp Pulse Resp B/P (MAP) Pulse Ox O2 O2 Flow FiO2 Time Delivery Rate 12/20/18 99.6 11:29 12/20/18 90 24 115/61 97 08:11 (79) 12/20/18 Room Air 02:00 Intake and Output 12/19/18 12/19/18 12/20/18 1515:00 23:00 07:00 IntakeIntake Total 2100 ml 1200 ml 250 ml OutputOutput Total 800 ml 500 ml BalanceBalance 1300 ml 700 ml 250 ml Results Result Diagram: 12/20/18 0443 12/20/18 0443 Results 24hrs Laboratory Tests Test 12/20/18 04:43 White Blood Count 17.5 #H Red Blood Count 3.67 L Hemoglobin 11.3 L Hematocrit 34.5 L Mean Corpuscular Volume 94.0 Mean Corpuscular Hemoglobin 30.8 Mean Corpuscular Hemoglobin Concent 32.8 Red Cell Distribution Width 12.9 Platelet Count 191 Mean Platelet Volume 10.8 H Immature Granulocytes % 1.100 H Neutrophils % 88.4 H Lymphocytes % 3.6 L Monocytes % 6.6 Eosinophils % 0.1 Basophils % 0.2 Nucleated Red Blood Cells % 0.0 Immature Granulocytes # 0.190 H Neutrophils # 15.4 H Lymphocytes # 0.6 L Monocytes # 1.2 H Eosinophils # 0.0 Basophils # 0.0 Nucleated Red Blood Cells # 0.0 Sodium Level 139 Potassium Level 4.2 Chloride Level 102 Carbon Dioxide Level 27 Anion Gap 10 Blood Urea Nitrogen 15 Creatinine 1.38 H Est Glomerular Filtrat Rate mL/min 52 L Glucose Level 114 Calcium Level 8.1 L Phosphorus Level 3.5 Magnesium Level 2.1 Medications Medication Current Medications Sodium Chloride 1,000 ml @ 50 mls/hr Q20H IV Last administered on 12/20/18 12:10; Admin Dose 50 MLS/HR; Start 12/18/18 at 23:57 IV Flush (NS 3 ml) 3 ml PER PROTOCOL IV ; Start 12/19/18 at 00:00 Ondansetron HCl (Zofran Inj) 4 mg Q6H PRN IV NAUSEA/VOMITING Last administered on 12/19/18 13:25; Admin Dose 4 MG; Start 12/19/18 at 00:00 Acetaminophen (Tylenol Tab) 650 mg Q6H PRN PO .PAIN 1-3 OR TEMP Last administered on 12/20/18 08:04; Admin Dose 650 MG; Start 12/19/18 at 00:00 Heparin Sodium (Porcine) (Heparin (5000 Units/1ml)) 5,000 unit Q12 SC Last administered on 12/20/18 08:06; Admin Dose 5,000 UNIT; Start 12/19/18 at 09:00 Ipratropium [place] (Atrovent 0.02% (Neb)) 0.5 mg Q2H RESP THERAPY PRN NEB SHORTNESS OF BREATH; Start 12/19/18 at 00:00 Zolpidem Tartrate (Ambien) 10 mg HS PRN PO INSOMNIA; Start 12/19/18 at 00:00 Pantoprazole (Protonix Tab) 40 mg DAILY@06 PO Last administered on 12/20/18 05:42; Admin Dose 40 MG; Start 12/19/18 at 06:00 Alprazolam (Xanax) 0.25 mg Q8H PRN PO ANXIETY; Start 12/19/18 at 10:00 Aspirin (Aspirin) 81 mg DAILY PO Last administered on 12/20/18 08:11; Admin Dose 81 MG; Start 12/20/18 at 09:00 Cholecalciferol (Vitamin D) 1,000 unit DAILY PO Last administered on 12/20/18 08:11; Admin Dose 1,000 UNIT; Start 12/20/18 at 09:00 Atorvastatin Calcium (Lipitor) 10 mg HS PO Last administered on 6/21/19at 20:31; Admin Dose 10 MG; Start 12/19/18 at 21:00 Lisinopril (Zestril) 40 mg DAILY PO Last administered on 12/20/18at 08:08; Admin Dose 40 MG; Start 12/19/18 at 10:30 Ibuprofen (Motrin) 400 mg Q6H PRN PO MILD PAIN(1-3) OR TEMP>38C Last administered on 12/19/18at 20:31; Admin Dose 400 MG; Start 12/19/18 at 16:30 Ceftriaxone Sodium 50 ml @ 100 mls/hr Q24H IVPB ; Start 12/20/18 at 14:30 JESSIKA DOHERTY NP Dec 20, 2018 13:36
[2018-12-20 15:15] VITALS: BP 120/64; PULSE 100; RESP 22
[2018-12-20] MEDS: CEFTRIAXONE 2 GM/50 ML (PMX) 50 ML IVPB SCH (15:19)
[2018-12-20 20:00] VITALS: BP 121/69; PULSE 103; RESP 19
[2018-12-20] MEDS ORDERED: DIPHENHYDRAMINE 25 MG CAP ONE (20:01)
[2018-12-20] MEDS: ATORVASTATIN 10 MG TAB PO SCH (20:30)
[2018-12-21] MEDS: SOD CHLORIDE 0.9% 1,000 ML IV SCH ×2 (01:47→23:26)
[2018-12-21 02:00] VITALS: BP 137/72; PULSE 94; RESP 19
[2018-12-21] MEDS: ACETAMINOPHEN 325 MG TAB PO PRN ×2 (02:09→18:52)
[2018-12-21] MEDS: PANTOPRAZOLE (EC) 40 MG TAB PO SCH (06:09)
[2018-12-21 08:30] VITALS: BP 143/79; PULSE 89; RESP 20
[2018-12-21] MEDS: ASPIRIN 81 MG TAB PO SCH (09:13)
[2018-12-21] MEDS: CHOLECALCIFEROL 1,000 UNIT TAB PO SCH (09:13)
[2018-12-21] MEDS: LISINOPRIL 20 MG TAB PO SCH (09:13)
[2018-12-21] MEDS: HEPARIN 5,000 UNIT/1 ML VIAL SC SCH ×2 (09:21→20:15)
--- NOTE | 2018-12-21 13:21 | PN ---
Date/Time of Note Date/Time of Note DATE: 12/21/18 TIME: 13:20 Objective Vitals Vital Signs Date Temp Pulse Resp B/P (MAP) Pulse Ox O2 O2 Flow FiO2 Time Delivery Rate 12/21/18 99.1 89 20 143/79 96 Room Air 08:30 (100) Intake and Output 12/20/18 12/20/18 12/21/18 1515:00 23:00 07:00 IntakeIntake Total 1340 ml 50 ml 1000 ml OutputOutput Total 651 ml 500 ml 900 ml BalanceBalance 689 ml -450 ml 100 ml Results Result Diagram: 12/21/18 0453 12/21/18 0452 Medications Medications Current Medications Sodium Chloride 1,000 ml @ 50 mls/hr Q20H IV Last administered on 12/20/18at 12:10; Admin Dose 50 MLS/HR; Start 12/18/18 at 23:57 IV Flush (NS 3 ml) 3 ml PER PROTOCOL IV ; Start 12/19/18 at 00:00 Ondansetron HCl (Zofran Inj) 4 mg Q6H PRN IV NAUSEA/VOMITING Last administered on 12/19/18at 13:25; Admin Dose 4 MG; Start 12/19/18 at 00:00 Acetaminophen (Tylenol Tab) 650 mg Q6H PRN PO .PAIN 1-3 OR TEMP Last admi nistered on 12/21/18at 02:09; Admin Dose 650 MG; Start 12/19/18 at 00:00 Heparin Sodium (Porcine) (Heparin (5000 Units/1ml)) 5,000 unit Q12 SC Last administered on 12/21/18at 09:21; Admin Dose 5,000 UNIT; Start 12/19/18 at 09:00 Ipratropium [place] (Atrovent 0.02% (Neb)) 0.5 mg Q2H RESP THERAPY PRN NEB SHORTNESS OF BREATH; Start 12/19/18 at 00:00 Zolpidem Tartrate (Ambien) 10 mg HS PRN PO INSOMNIA; Start 12/19/18 at 00:00 Pantoprazole (Protonix Tab) 40 mg DAILY@06 PO Last administered on 12/21/18at 06:09; Admin Dose 40 MG; Start 12/19/18 at 06:00 Alprazolam (Xanax) 0.25 mg Q8H PRN PO ANXIETY; Start 12/19/18 at 10:00 Aspirin (Aspirin) 81 mg DAILY PO Last administered on 12/21/18 09:13; Admin Dose 81 MG; Start 12/20/18 at 09:00 Cholecalciferol (Vitamin D) 1,000 unit DAILY PO Last administered on 12/21/18 09:13; Admin Dose 1,000 UNIT; Start 12/20/18 at 09:00 Atorvastatin Calcium (Lipitor) 10 mg HS PO Last administered on 12/20/18at 20:30; Admin Dose 10 MG; Start 12/19/18 at 21:00 Lisinopril (Zestril) 40 mg DAILY PO Last administered on 12/21/18 09:13; Admin Dose 40 MG; Start 12/19/18 at 10:30 Ibuprofen (Motrin) 400 mg Q6H PRN PO MILD PAIN(1-3) OR TEMP>38C Last administered on 12/19/18 20:31; Admin Dose 400 MG; Start 12/19/18 at 16:30 Ceftriaxone Sodium 50 ml @ 100 mls/hr Q24H IVPB Last administered on 12/20/18 15:19; Admin Dose 100 MLS/HR; Start 12/20/18 at 14:30 Fluticasone Propionate (Flonase 0.05% Nasal) 1 spray BID NASAL ; Start 12/21/18 at 14:00 VTE Prophylaxis Risk score (from Ns)>0 risk: 4 SCD applied (from Ns): No SCD contraindication: other Lines/Catheters IV Catheter Type: Marie in Place: No Assessment/Plan Hospital Course Subjective Patient feeling better Objective Physical exam General: Patient is laying in bed and answers questions appropriately Mentation: Patient is alert and oriented 4, Head: Normocephalic atraumatic Eyes: EOMI, pupils reactive to light Neck: Supple, nontender, midline Respiratory: Clear to auscultation bilaterally Cardiovascular: regular rate, no obvious murmurs Gastrointestinal: non-tender to palpation, bowel sounds heard. Neurological: Moves all extremities spontaneously Skin: No new skin lesions Assessment and plan Sepsis, secondary to bacteremia -IV fluid -IV antibiotic -Cultures pending, showing strep -Infectious disease on board Questionable upper respiratory infection -No significant shortness of breath -However did have persistent cough preceding this admission -IV antibiotic -Chest x-ray clear -Flu negative Bacteremia, strep so far -Infectious disease on board -Repeat cultures -Continue IV antibiotic, taper per ID recommendations -Patient does have a history of rheumatic disease, will get echocardiogram, may need transesophageal echocardiogram to rule out bacterial endocarditis if transthoracic is unrevealing -patient was on antibiotics for 5 years as a child -Patient also has recent dental work, will get a CT to ensure no abnormality in the dental region which may have led to strep bacteremia Sinus congestion -Flonase as needed Insomnia -Benadryl as needed per patient request Anemia -Mild -Monitor outpatient Disposition -ID recommendations appreciated, continue IV antibiotic for strep bacteremia, awaiting results of transthoracic echo, may need transesophageal echocardiogram, patient may need long-term IV antibiotics MIA CAMPBELL Dec 21, 2018 13:21
[2018-12-21] MEDS ORDERED: DIPHENHYDRAMINE 50 MG CAP PO PRN (13:30)
--- NOTE | 2018-12-21 13:51 | RADRPT ---
Echocardiogram Report Patient Name: MIA BERNSTEINPatient ID: [id number] : 1955 (63y 2m)Study Date: 12/21/2018 12:10:10 PM Gender: MAccession #: [id number] Tech: Dede Leonard [facility] Location: [id number]- Ref.Physician: MIA CAMPBELL Height(Cm): BSA: Weight(Kg): Quality: AdequateOrder Physician: MIA CAMPBELL Account #: Procedures: Echocardiographic Report: Transthoracic echocardiogram with complete 2D, M-Mode, and doppler examination. Indications: Vegetations? Measurements: 2D/M Mode Doppler Measurement Value Normal Range Measurement Value Normal Range LVIDd 2D 5.2 [ 4.2 - 5.8 ] cm AV Peak Yasmany 1.5 [ 100.0 - 170.0 ] cm/se c LVIDs 2D 3.3 [ 2.5 - 4.0 ] cm AV Peak PG 9.0 [ 2.0 - 9.0 ] mmHg LVPWd 2D 1.1 [ 0.6 - 1.0 ] cm LVOT Peak Yasmany 1.0 [ 70.0 - 110.0 ] cm/sec IVSd 2D 0.8 [ 0.6 - 1.0 ] cm LVOT Peak PG 4.0 [ 2.0 - 6.0 ] mmHg AoR Diam 2D 3.2 [ 2.6 - 3.4 ] cm MV E Peak Yasmany 1.2 [ 60.0 - 130.0 ] cm/sec EDV 2D 128.0 [ 62.0 - 150.0 ] ml MV A Peak Yasmany 0.3 [ 100.0 - 120.0 ] cm/se c ESV 2D 43.8 [ 21.0 - 61.0 ] ml MV E/A 4.4 [ 0.8 - 1.5 ] ratio EF 2D 65.8 [ 52.0 - 72.0 ] percent MV PHT 32.0 [ 20.0 - 100.0 ] msec LA Dimen 2D 3.5 [ 3.0 - 4.0 ] cm MV Decel Time 111 [ 104 - 258 ] msec MV Decel Bailey 11 Lat E` Yasmany 0.1 [ 10.0 - 15.0 ] cm/sec Lateral E/E` 10.3 [ 1.0 - 2.0 ] ratio Med E` Yasmany 0.1 cm/sec MV E/A 4.4 [ 0.8 - 1.5 ] ratio MVA PHT 6.9 [ 2.0 - 4.0 ] cm2 Findings: Left Ventricle: Normal left ventricular systolic function. Normal left ventricular cavity size. Normal left ventricular wall thickness. Ejection fraction is visually estimated at 55-60 %. Tissue Doppler/Mitral Doppler indices are within normal limits. Right Ventricle: Normal right ventricular size. Normal right ventricular systolic function. Left Atrium: The left atrium is normal in size. Right Atrium: The right atrium is normal in size. Atrial Septum: Normal atrial septum. Ventricular septum: Normal/intact ventricular septum. Mitral Valve: Normal appearance of the mitral valve. No mitral valve regurgitation is seen. Aortic Valve: Normal appearance of the aortic valve. No aortic regurgitation. Tricuspid Valve: Normal appearance of the tricuspid valve. Unable to obtain RVSP due to minimal presence of tricuspid regurgitation. No evidence of tricuspid regurgitation. Pulmonic Valve: Normal pulmonic valve appearance. No evidence of pulmonic regurgitation. Pericardium: Normal pericardium with no significant pericardial effusion. Aorta: Normal aortic root. IVC: Normal size and normal respiratory collapse consistent with normal right atrial pressure. Conclusions: Normal left ventricular systolic function. Normal left ventricular cavity size. Normal left ventricular wall thickness. Ejection fraction is visually estimated at 55-60 %. Tissue Doppler/Mitral Doppler indices are within normal limits. Normal appearance of the aortic valve. No aortic regurgitation. Normal appearance of the mitral valve. No mitral valve regurgitation is seen. poor windows shadowing over aortic valve. Electronically Signed By: Chetan Mao 2018-12-21 13:50:43 PDT
[2018-12-21] MEDS: FLUTICASONE 0.05% 16 GM NAS SPRAY NASAL SCH ×2 (14:25→23:00)
[2018-12-21] MEDS: CEFTRIAXONE 2 GM/50 ML (PMX) 50 ML IVPB SCH (14:25)
[2018-12-21 15:00] VITALS: BP 136/72; PULSE 88; RESP 20
--- NOTE | 2018-12-21 15:31 | CONS ---
Assessment/Plan Assessment/Plan Hospital Course (Demo Recall) ID PROGRESS NOTE CURRENT ABX: DAY # =>Ceftriaxone s/p Vanco IV s/p Azith s/p Levaquin HPI REVIEWED * 63-year-old male with a history of hypertension, anemia, GERD, prostate cancer status post removal in March of last year. Patient presents the ER complaining of fever/chills, shortness of breath, dry cough, which started few hours ago around 1700. He also reported lack of energy and vague muscular type pain in the groin area and in the upper thigh, which she attributed to possible flu. He said he checked his temperature at home. Initially it was 100.8 with repeat being around 101.4. Denied sick contact, recent travel. He said he had similar symptoms 5 years ago for which he said he came to the hospital and was treated for pneumonia in the ER. When he presented to the ER, he was febrile with a temperature of 102.4, tachycardic with a heart rate of 129. Blood pressure 172/91. WBC 20,000. 24H INTERVAL SUMMARY * VSS, NAD, subjective fevers w/low grade temps * I met with patient and spouse today -- lengthy discussion beside regarding possible sources of STREP C bacteremia. * Strep C is an Upper respiratory eduardo can become a pathogen -- He has not aBD/Flank pain/ no open wounds, no joint swelling pain. No known dental infection, nor hx of periodontal disease, he has mild dry cough, mild SHEPHERD, denies nasal gtt, no chest congestion. We must look into SBE as a possible source. DIAGNOSTIC IMAGING * 12/19/18 CXR: IMPRESSION: 1. No consolidative pulmonary infiltrates noted. 2. No new abnormality demonstrated when compared to the previous study. * 12/19/18 KNEE XR: 1. No acute osseous abnormality.2. Tgdt-rz-qqfdyhxn osteoarthritis, most notable at the medial tibio-femoral compartment. 3. Proximal tibial exostosis. * 12/19/18 BILAT HIP XR: 1. [id number]-[id number] bilateral hip joint osteoarthritis. * 12/20/18 2D ECHO: Conclusions: * Normal left ventricular systolic function. Normal left ventricular cavity size. Normal left ventricular wall thickness. Ejection fraction is visually estimated at 55-60 %. Tissue Doppler/Mitral Doppler indices are within normal limits. * Normal appearance of the aortic valve. No aortic regurgitation. * Normal appearance of the mitral valve. No mitral valve regurgitation is seen. poor windows shadowing over aortic valve. MICRO * INFLUENZA A & B BY EIA Final INFLU A&B BY EIA INFLUENZA A NEGATIVE (Ref Range Neg) INFLUENZA B NEGATIVE (Ref Range Neg) * 12/18/18 BCx (-) * 12/18/18 BCx (+) STREP C 1/2 bottles from ED * 12/18/18 Urine Cx (+) URINE CULTURE Final Organism 1 MIXED GRAM POSITIVE ORGANISMS COLONY COUNT 10,000 - 20,000 CFU/ml PHYSICAL EXAMINATION: GENERAL: VSS, NAD HEENT: AT, NC, NECK: Supple, CHEST: Rise symmetrical HEART: Pulse RRR ABDOMEN: Benign EXTREMITIES: Warm, dry SKIN: No rash, no diaphoresis ID ASSESSMENT 63 yo M admit with: 1. Sepsis on admission w/fevers/chills, leukocytosis 2. STREP C Bacteremia --> SOURCE UNCLEAR * DDX URI vs true UTI vs Dental Infx vs SBE? 3. Dry cough w/mild SHEPHERD ? URI ? Sxs resolved 4. Polymicrobial bacteruria -- probable contaminant vs possible early UTI 5 s/p Prostatectomy MAR 2018 6. GERD -- risk factor for silent aspiration, however no evidence PNA 7. Osteoarthritis bilateral hips, knees -> He is complaining of hip pain, no joint edema ABX ALLERGIES: None to ABX INVASIVES: PIV CURRENT ABX: DAY # Ceftriaxone s/p Vanco IV s/p Azith ID RECOMMENDATIONS/PLAN: 1. Continue Ceftriaxone 2gm IB daily -- unclear source of STREP C Bacteremia ? 2D ECHO w/poor views of AoValve * f/u CT Maxillary/Facial -- r/o URI/Dental Infection * Proceed to Cardiology Consult for LILY due to poor views of Aortic Valve -- Patient is willing to undergo procedure 2. I met with patient and spouse yesterday - lengthy discussion beside regarding possible sources of STREP C bacteremia. * Strep C is an Upper respiratory eduardo can become a pathogen -- He has not aBD/ Flank pain/ no open wounds, no joint swelling pain. No known dental infection, nor hx of periodontal disease, he has mild dry cough, mild SHEPHERD, denies nasal gtt, no chest congestion. We must look into SBE as a possible source. 3. UpToDate reviewed as below -- regarding STREP C diagnostic considerations and treatment. [email or web address]_[email or web address]_[email or web address] Group C and group G streptococcal infection Author: Glen Venegas MD Section Software Quality Tester: Sammy Mohan MD [employer] Quality Tester: Citlaly Fajardo MD Contributor Disclosures All topics are updated as new evidence becomes available and our peer review process is complete. Literature review current through: October 2018. | This topic last updated: Sep 22, 2018. CLINICAL MANIFESTATIONSGroup C streptococci (GCS) and group G streptococci (GGS) have been implicated in a wide variety of human infections: pharyngitis, a range of skin and soft tissue infections (including impetigo, infected ulcers, wound infections, cellulitis, and necrotizing soft tissue infection), bacteremia, endocarditis, septic arthritis, osteomyelitis, pleuropulmonary infections, peritonitis, intra-abdominal abscess, meningitis, puerperal sepsis, se psis, and streptococcal toxic shock-like syndrome [21-24]. Bacteremia GCS and GGS together accounted for 30 percent of beta-hemolytic streptococcal bacteremia among adults in a hospital-based series [25]. In a review of 88 cases of GCS bacteremia, the mean age was 45 years, and 19 percent were younger than 18 years of age [26]. Underlying medical conditions were present in 74 percent, most commonly cardiovascular disease, malignancy, or immunosuppression. The most common sources of GCS bacteremia were thought to be the upper respiratory tract, gastrointestinal tract (including a cluster of cases due to S. equi subsp zooepidemicus from the consumption of unpasteurized milk), and skin sources, such as wounds, ulcers, and injection drug use. Clinical syndromes associated with GCS bacteremia included endocarditis, meningitis, cutaneous infection, intra-abdominal infection, pneumonia, sinusitis, pharyngitis, epiglottitis, arthritis, osteomyelitis, mycotic aneurysm, fistula infection, genitourinary tract infection, and pericarditis. Mortality is approximately 25 percent [26,27]. Case series of group G streptococcal bacteremia have described similar clinical features: advanced age, malignancy, diabetes, and alcohol use as underlying conditions; the skin as the most common source; and endocarditis and bone and joint infections as associated clinical syndromes [28-36]. Endocarditis In some series of patients with invasive GCS or GGS infection, bacteremia has been associated with endocarditis in 25 to 50 percent of cases [ 26,30,37,38]. Endocarditis has been reported both in patients with preexisting valvular disease and in patients with previously normal valves. Embolic c omplications are common and may be associated with large valvular vegetations. Some authors favor consideration of early valve replacement because of the risk of embolic events, especially stroke [39]. Arthritis Septic arthritis is a relatively frequent presentation of invasive GCS or GGS infection, with or without detectable bacteremia [40-44]. Patients are frequently older adults with underlying chronic illness, and there appears to be a male predominance. Preexisting arthritis and the presence of a prosthetic joint are common predisposing factors. The knee is involved most often; polyarticular infection occurs occasionally and should suggest the possibility of concomitant endocarditis. Skin and soft tissue infections GCS and GGS have been implicated as a cause of skin and soft tissue infection, particularly in the setting of preexisting vascular or lymphatic compromise. Recurrent lower extremity cellulitis has been described after saphenous venectomy for coronary artery bypass surgery, sometimes in association with tinea pedis and colonization of the web space between the toes [45,46]. Anal colonization may also be a source for recurrent infection [47]. Recurrent GGS bacteremia occurred in 14 percent of patients in one series and was frequently associated with underlying lymphatic disorders [34 ]. Necrotizing fasciitis similar to that caused by S. pyogenes has also been observed, in some cases associated with streptococcal toxic shock-like syndrome [22,48,49]. Pharyngitis Epidemic pharyngitis has been reported from foodborne infection with GCS or GGS, particularly in semiclosed populations such as installations or schools [15,50,51]. Dairy products, egg salad, and chicken salad have been implicated as sources. Respiratory outbreaks of GGS pharyngitis via yfsbjl-ic-qomjxg transmission have also been described [52]. In contrast, the role of GCS and GGS in sporadic or endemic pharyngitis is controversial. Some studies have found higher isolation rates of GCS or GGS in throat cultures of individuals with symptomatic pharyngitis compared with asymptomatic controls, whereas others have not [53-56 ]. One retrospective study in a large [facility]-based health system evaluated results of [id number] throat cultures in children from 0 to 18 years of age. Non- group A beta-hemolytic streptococci were recovered in 3.1 percent of encounters, compared with group A streptococci (GAS or S. pyogenes) identified in 22.8 percent. While the non-group A streptococci (NGAS) were not further characterized, they were presumed to represent predominantly GCS or GGS. Patients with NGAS had significantly lower rates of fever, throat erythema, and lymphadenopathy and higher rates of cough and rhinorrhea compared with those with GAS. These findings suggested that a higher proportion of NGAS patients were carriers with viral pharyngitis compared to the GAS group [57]. Thus, with the possible exception of a suspected outbreak, the isolation of GCS or GGS in a throat culture from a patient with pharyngitis is of uncertain significance. GCS and GGS are not detected by rapid antigen tests for GAS pharyngitis because they lack the group A antigen that is the target of these tests. ```````````` TREATMENTGroup C streptococci (GCS) and group G streptococci (GGS) are susceptible to beta-lactam antibiotics. Penicillin is considered the drug of choice for treatment of GCS and GGS infections [21,59,60]: ?Treatment of GCS or GGS cellulitis consists of penicillin G 2 million units intravenously (IV) every 4 to 6 hours (for children: 50,000 units/kg/dose, not to exceed adult dose). ?Treatment of bacteremia, severe invasive soft tissue infection, endocarditis, osteomyelitis, or septic arthritis due to GCS or GGS consists of penicillin G 3 million units IV every 4 hours (for children: 75,000 units/kg/dose, not to exceed adult dose). Third-generation cephalosporins are also highly active and are suitable alternative agents. Options include cefotaxime 2 g IV every 6 hours (for children: 50 mg/kg/dose IV every 6 hours, not to exceed adult dose) or ceftriaxone 2 g IV every 24 hours (for children: 50 mg/kg/dose IV every 24 hours, not to exceed adult dose). The duration of treatment should be tailored to clinical response and generally should be continued until at least three days after resolution of fever and other clinical signs. General guidelines are 7 to 10 days for cellulitis, 14 days for bacteremia, 14 to 28 days for severe invasive soft tissue infection, 28 to 42 days for osteomyelitis or septic arthritis, and 28 to 42 days for endocarditis. Issues related to treatment of specific infections are discussed further separjoe jonas. (See "Antimicrobial therapy of [place] valve endocarditis" and "Necrotizing soft tissue infections".) For patients with a history of severe hypersensitivity reactions to beta-lactam antibiotics, vancomycin may be used. Linezolid and daptomycin are active in vitro, but clinical experience in treating GCS and GGS infections with either agent is limited. The prevalence of resistance to macrolides is highly variable but has been as high as 15 to 25 percent in some areas and is sometimes associated with inducible clindamycin resistance [60-62]. High-level resistance to fluoroquinolones has been described in a small percentage of clinical isolates [59,63]. Treatment of pharyngitis when GCS or GGS has been isolated from a throat culture may be indicated in the setting of a point-source (eg, foodborne) outbreak or in sporadic cases in which clinical features suggest pyogenic bacterial infection (ie, fever, tonsillar exudates, tender cervical lymphadenopathy, and absence of cough or rhinorrhea) [64]. The same regimens recommended for S. pyogenes are suitable for GCS/GGS pharyngitis. However, GCS/GGS pharyngitis is not known to trigger acute rheumatic fever; therefore, a treatment course of 5 days (rather than 10 days) is reasonable. (See "Treatment and prevention of streptococcal pharyngitis".) SUMMARY Consultation Date/Type/Reason Admit Date/Time Dec 18, 2018 at 20:30 Initial Consult Date Date/Time of Note DATE: 12/21/18 TIME: 15:12 Exam/Review of Systems Exam Vitals Vital Signs Date Temp Pulse Resp B/P (MAP) Pulse Ox O2 O2 Flow FiO2 Time Delivery Rate 12/21/18 99.1 89 20 143/79 96 Room Air 08:30 (100) Intake and Output 12/20/18 12/20/18 12/21/18 1515:00 23:00 07:00 IntakeIntake Total 1340 ml 50 ml 1000 ml OutputOutput Total 651 ml 500 ml 900 ml BalanceBalance 689 ml -450 ml 100 ml Results Result Diagram: 12/21/18 0453 12/21/18 0452 Results 24hrs Laboratory Tests Test 12/21/18 04:52 12/21/18 04:53 Sodium Level 141 Potassium Level 3.7 Chloride Level 104 Carbon Dioxide Level 27 Anion Gap 10 Blood Urea Nitrogen 10 Creatinine 1.04 Est Glomerular Filtrat Rate mL/min > 60 Glucose Level 106 Calcium Level 8.4 Phosphorus Level 2.8 Magnesium Level 2.2 White Blood Count 14.7 H Red Blood Count 3.52 L Hemoglobin 10.9 L Hematocrit 33.2 L Mean Corpuscular Volume 94.3 Mean Corpuscular Hemoglobin 31.0 Mean Corpuscular Hemoglobin Concent 32.8 Red Cell Distribution Width 12.8 Platelet Count 182 Mean Platelet Volume 10.9 H Immature Granulocytes % 0.500 H Neutrophils % 85.6 H Lymphocytes % 4.5 L Monocytes % 8.8 Eosinophils % 0.5 Basophils % 0.1 Nucleated Red Blood Cells % 0.0 Immature Granulocytes # 0.070 H Neutrophils # 12.6 H Lymphocytes # 0.7 L Monocytes # 1.3 H Eosinophils # 0.1 Basophils # 0.0 Nucleated Red Blood Cells # 0.0 Medications Medication Current Medications Sodium Chloride 1,000 ml @ 50 mls/hr Q20H IV Last administered on 12/20/18at 12:10; Admin Dose 50 MLS/HR; Start 12/18/18 at 23:57 IV Flush (NS 3 ml) 3 ml PER PROTOCOL IV ; Start 12/19/18 at 00:00 Ondansetron HCl (Zofran Inj) 4 mg Q6H PRN IV NAUSEA/VOMITING Last administered on 12/19/18at 13:25; Admin Dose 4 MG; Start 12/19/18 at 00:00 Acetaminophen (Tylenol Tab) 650 mg Q6H PRN PO .PAIN 1-3 OR TEMP Last administered on 12/21/18at 02:09; Admin Dose 650 MG; Start 12/19/18 at 00:00 Heparin Sodium (Porcine) (Heparin (5000 Units/1ml)) 5,000 unit Q12 SC Last administered on 12/21/18at 09:21; Admin Dose 5,000 UNIT; Start 12/19/18 at 09:00 Ipratropium [place] (Atrovent 0.02% (Neb)) 0.5 mg Q2H RESP THERAPY PRN NEB SHORTNESS OF BREATH; Start 12/19/18 at 00:00 Zolpidem Tartrate (Ambien) 10 mg HS PRN PO INSOMNIA; Start 12/19/18 at 00:00 Pantoprazole (Protonix Tab) 40 mg DAILY@06 PO Last administered on 12/21/18 06:09; Admin Dose 40 MG; Start 12/19/18 at 06:00 Alprazolam (Xanax) 0.25 mg Q8H PRN PO ANXIETY; Start 12/19/18 at 10:00 Aspirin (Aspirin) 81 mg DAILY PO Last administered on 12/21/18 09:13; Admin Dose 81 MG; Start 12/20/18 at 09:00 Cholecalciferol (Vitamin D) 1,000 unit DAILY PO Last administered on 12/21/18 09:13; Admin Dose 1,000 UNIT; Start 12/20/18 at 09:00 Atorvastatin Calcium (Lipitor) 10 mg HS PO Last administered on 12/20/18 20:30; Admin Dose 10 MG; Start 12/19/18 at 21:00 Lisinopril (Zestril) 40 mg DAILY PO Last administered on 12/21/18 09:13; Admin Dose 40 MG; Start 12/19/18 at 10:30 Ibuprofen (Motrin) 400 mg Q6H PRN PO MILD PAIN(1-3) OR TEMP>38C Last administered on 12/19/18 20:31; Admin Dose 400 MG; Start 12/19/18 at 16:30 Ceftriaxone Sodium 50 ml @ 100 mls/hr Q24H IVPB Last administered on 12/21/18 14:25; Admin Dose 100 MLS/HR; Start 12/20/18 at 14:30 Fluticasone Propionate (Flonase 0.05% Nasal) 1 spray BID NASAL Last administered on 12/21/18 14:25; Admin Dose 1 SPRAY; Start 12/21/18 at 14:00 Diphenhydramine HCl (Benadryl) 50 mg HS PRN PO insomnia; Start 12/21/18 at 13:30 JESSIKA DOHERTY NP Dec 21, 2018 15:22
[2018-12-21 19:42] VITALS: BP 147/77; PULSE 91; RESP 20
[2018-12-21] MEDS: ATORVASTATIN 10 MG TAB PO SCH (20:10)
[2018-12-21] MEDS: ALPRAZOLAM 0.25 MG TAB PO PRN (20:10)
[2018-12-21 23:06] VITALS: BP 127/60; PULSE 90; RESP 18
[2018-12-22 02:00] VITALS: BP 108/56; PULSE 91; RESP 18
[2018-12-22] MEDS: PANTOPRAZOLE (EC) 40 MG TAB PO SCH (05:43)
[2018-12-22 07:50] VITALS: BP 132/70; PULSE 119; RESP 16
[2018-12-22] MEDS: LISINOPRIL 20 MG TAB PO SCH (09:45)
[2018-12-22] MEDS: FLUTICASONE 0.05% 16 GM NAS SPRAY NASAL SCH ×2 (09:45→20:12)
[2018-12-22] MEDS: ASPIRIN 81 MG TAB PO SCH (09:45)
[2018-12-22] MEDS: CHOLECALCIFEROL 1,000 UNIT TAB PO SCH (09:45)
[2018-12-22] MEDS: HEPARIN 5,000 UNIT/1 ML VIAL SC SCH ×2 (09:46→20:12)
[2018-12-22] MEDS ORDERED: POTASSIUM CHLORIDE (SR) 20 MEQ TAB PO STA (10:51)
[2018-12-22] MEDS: GUAIFENESIN/DM 5ML CUP PO PRN ×2 (11:14→18:16)
[2018-12-22 14:36] VITALS: BP 122/75; PULSE 110; RESP 16
[2018-12-22] MEDS: ACETAMINOPHEN 325 MG TAB PO PRN (14:56)
--- NOTE | 2018-12-22 15:35 | CONS ---
Assessment/Plan Assessment/Plan Hospital Course (Demo Recall) Patient is alert feels good no fevers overnight WBC 11.4 neutrophils 80.2 BUN 7 creatinine 0.92 Microbiology: Blood culture grew strep on admission repeat blood cultures negative Physical examination: Well-developed elderly man who is alert in no distress. Head atraumatic normocephalic neck is supple chest rise symmetrical breath sounds clear heart: S1-S2. Abdomen soft bowel sounds present. Extremities without cyanosis Assessment: 1. Strep bacteremia 2. Status post sepsis that was present on admission 3. History of prostatectomy Plan: Patient remains on Rocephin, still with ongoing fevers low-grade, Tm 102 yesterday, continue on current antibiotics, pending repeat 2D echo and possible LILY Consultation Date/Type/Reason Admit Date/Time Dec 18, 2018 at 20:30 Initial Consult Date Type of Consult id Date/Time of Note DATE: 12/22/18 TIME: 15:34 Exam/Review of Systems Exam Vitals Vital Signs Date Temp Pulse Resp B/P (MAP) Pulse Ox O2 O2 Flow FiO2 Time Delivery Rate 12/22/18 100.1 14:56 12/22/18 110 16 122/75 97 14:36 (91) 12/22/18 Room Air 02:00 Intake and Output 12/21/18 12/21/18 12/22/18 1515:00 23:00 07:00 IntakeIntake Total 3251 ml 560 ml OutputOutput Total 1100 ml BalanceBalance 2151 ml 560 ml Results Result Diagram: 12/22/18 0448 12/22/18 0448 Results 24hrs Laboratory Tests Test 12/22/18 04:48 White Blood Count 11.4 #H Red Blood Count 3.64 L Hemoglobin 11.2 L Hematocrit 33.7 L Mean Corpuscular Volume 92.6 Mean Corpuscular Hemoglobin 30.8 Mean Corpuscular Hemoglobin Concent 33.2 Red Cell Distribution Width 12.4 Platelet Count 235 # Mean Platelet Volume 10.9 H Immature Granulocytes % 0.700 H Neutrophils % 80.2 H Lymphocytes % 6.3 L Monocytes % 10.7 Eosinophils % 1.8 Basophils % 0.3 Nucleated Red Blood Cells % 0.0 Immature Granulocytes # 0.080 H Neutrophils # 9.1 H Lymphocytes # 0.7 L Monocytes # 1.2 H Eosinophils # 0.2 Basophils # 0.0 Nucleated Red Blood Cells # 0.0 Sodium Level 141 Potassium Level 3.3 L Chloride Level 104 Carbon Dioxide Level 28 Anion Gap 9 Blood Urea Nitrogen 7 Creatinine 0.92 Est Glomerular Filtrat Rate mL/min > 60 Glucose Level 100 Calcium Level 8.6 Phosphorus Level 3.3 Magnesium Level 2.1 Medications Medication Current Medications IV Flush (NS 3 ml) 3 ml PER PROTOCOL IV ; Start 12/19/18 at 00:00 Ondansetron HCl (Zofran Inj) 4 mg Q6H PRN IV NAUSEA/VOMITING Last administered on 12/19/18 13:25; Admin Dose 4 MG; Start 12/19/18 at 00:00 Acetaminophen (Tylenol Tab) 650 mg Q6H PRN PO .PAIN 1-3 OR TEMP Last administered on 12/22/18 14:56; Admin Dose 650 MG; Start 12/19/18 at 00:00 Heparin Sodium (Porcine) (Heparin (5000 Units/1ml)) 5,000 unit Q12 SC Last administered on 12/22/18 09:46; Admin Dose 5,000 UNIT; Start 12/19/18 at 09:00 Ipratropium [place] (Atrovent 0.02% (Neb)) 0.5 mg Q2H RESP THERAPY PRN NEB SHORTNESS OF BREATH; Start 12/19/18 at 00:00 Zolpidem Tartrate (Ambien) 10 mg HS PRN PO INSOMNIA; Start 12/19/18 at 00:00 Pantoprazole (Protonix Tab) 40 mg DAILY@06 PO Last administered on 12/22/18 05:43; Admin Dose 40 MG; Start 12/19/18 at 06:00 Alprazolam (Xanax) 0.25 mg Q8H PRN PO ANXIETY Last administered on 12/21/18 20:10; Admin Dose 0.25 MG; Start 12/19/18 at 10:00 Aspirin (Aspirin) 81 mg DAILY PO Last administered on 12/22/18 09:45; Admin Dose 81 MG; Start 12/20/18 at 09:00 Cholecalciferol (Vitamin D) 1,000 unit DAILY PO Last administered on 12/22/18 09:45; Admin Dose 1,000 UNIT; Start 12/20/18 at 09:00 Atorvastatin Calcium (Lipitor) 10 mg HS PO Last administered on 12/21/18 20:10; Admin Dose 10 MG; Start 12/19/18 at 21:00 Lisinopril (Zestril) 40 mg DAILY PO Last administered on 12/22/18 09:45; Admin Dose 40 MG; Start 12/19/18 at 10:30 Ibuprofen (Motrin) 400 mg Q6H PRN PO MILD PAIN(1-3) OR TEMP>38C Last admi nistered on 12/19/18 20:31; Admin Dose 400 MG; Start 12/19/18 at 16:30 Ceftriaxone Sodium 50 ml @ 100 mls/hr Q24H IVPB Last administered on 12/21/18 14:25; Admin Dose 100 MLS/HR; Start 12/20/18 at 14:30 Fluticasone Propionate (Flonase 0.05% Nasal) 1 spray BID NASAL Last administered on 12/22/18 09:45; Admin Dose 1 SPRAY; Start 12/21/18 at 14:00 Diphenhydramine HCl (Benadryl) 50 mg HS PRN PO insomnia; Start 12/21/18 at 13:30 Guaifenesin/ Dextromethorphan (Robitussin Dm Liquid Cup) 5 ml Q4H PRN PO cough Last administered on 12/22/18 11:14; Admin Dose 5 ML; Start 12/22/18 at 11:00 BRIE MARI NP Dec 22, 2018 15:35
[2018-12-22] MEDS: CEFTRIAXONE 2 GM/50 ML (PMX) 50 ML IVPB SCH (15:45)
--- NOTE | 2018-12-22 17:26 | PN ---
Date/Time of Note Date/Time of Note DATE: 12/22/18 TIME: 17:19 Assessment/Plan VTE Prophylaxis Risk score (from Ns)>0 risk: 3 [place] [facility] [place] contraindicated: low risk/ambulating Pharmacological prophylaxis: NA/contraindicated Pharm contraindication: low risk/ambulating Lines/Catheters [facility]from [facility] Saline Lock Urinary Cath still in place: No Assessment/Plan Assessment/Plan 1. Sepsis secondary to bacteremia - ID on board for antibiotic recommendations - still with low grade fevers - supportive care - UCx ordered - repeat blood cultures negative 2. Post nasal drip - on Flonase - cough suppressant PRN 3. Strep Bacteremia - Initial ECHO results noted and ID recommending LILY. Cardiology consulted for evaluation - ID on board and appreciate recommendations - Patient does have a history of rheumatic disease - Patient also has recent dental work and crown has been bothering him. CT face negative for acute issues 4. Insomnia - Benadryl as needed per patient request 5. Anemia - Mild - Monitor outpatient 6. Disposition - Cardiology consulted for possible LILY per ID request. Monitor for further fevers Result Diagram: 12/22/18 0448 12/22/188 Results 24hrs Laboratory Tests Test 12/22/18 04:48 White Blood Count 11.4 #H Red Blood Count 3.64 L Hemoglobin 11.2 L Hematocrit 33.7 L Mean Corpuscular Volume 92.6 Mean Corpuscular Hemoglobin 30.8 Mean Corpuscular Hemoglobin Concent 33.2 Red Cell Distribution Width 12.4 Platelet Count 235 # Mean Platelet Volume 10.9 H Immature Granulocytes % 0.700 H Neutrophils % 80.2 H Lymphocytes % 6.3 L Monocytes % 10.7 Eosinophils % 1.8 Basophils % 0.3 Nucleated Red Blood Cells % 0.0 Immature Granulocytes # 0.080 H Neutrophils # 9.1 H Lymphocytes # 0.7 L Monocytes # 1.2 H Eosinophils # 0.2 Basophils # 0.0 Nucleated Red Blood Cells # 0.0 Sodium Level 141 Potassium Level 3.3 L Chloride Level 104 Carbon Dioxide Level 28 Anion Gap 9 Blood Urea Nitrogen 7 Creatinine 0.92 Est Glomerular Filtrat Rate mL/min > 60 Glucose Level 100 Calcium Level 8.6 Phosphorus Level 3.3 Magnesium Level 2.1 Subjective 24 Hr Interval Summary Free Text/Dictation Patient is complaining of post nasal drip and congestion with cough. No acute overnight events. Denies chest pain or shortness of breath but concerned about low grade temps. Exam/Review of Systems Exam Vitals Vital Signs Date Temp Pulse Resp B/P (MAP) Pulse Ox O2 O2 Flow FiO2 Time Delivery Rate 12/22/18 99.9 15:41 12/22/18 110 16 122/75 97 14:36 (91) 12/22/18 Room Air 02:00 Intake and Output 12/21/18 12/21/18 12/22/18 1515:00 23:00 07:00 IntakeIntake Total 3251 ml 560 ml OutputOutput Total 1100 ml BalanceBalance 2151 ml 560 ml Exam General: Patient is laying in bed and answers questions appropriately Neck: Supple Respiratory: Clear to auscultation bilaterally. no wheezing or rhonchi Cardiovascular: regular rate and rhythm, no obvious murmurs Gastrointestinal: soft, non-tender to palpation, nondistended, bowel sounds heard. Neurological: Moves all extremities spontaneously Skin: No new skin lesions Results Results 24hrs Laboratory Tests Test 12/22/18 04:48 White Blood Count 11.4 #H Red Blood Count 3.64 L Hemoglobin 11.2 L Hematocrit 33.7 L Mean Corpuscular Volume 92.6 Mean Corpuscular Hemoglobin 30.8 Mean Corpuscular Hemoglobin Concent 33.2 Red Cell Distribution Width 12.4 Platelet Count 235 # Mean Platelet Volume 10.9 H Immature Granulocytes % 0.700 H Neutrophils % 80.2 H Lymphocytes % 6.3 L Monocytes % 10.7 Eosinophils % 1.8 Basophils % 0.3 Nucleated Red Blood Cells % 0.0 Immature Granulocytes # 0.080 H Neutrophils # 9.1 H Lymphocytes # 0.7 L Monocytes # 1.2 H Eosinophils # 0.2 Basophils # 0.0 Nucleated Red Blood Cells # 0.0 Sodium Level 141 Potassium Level 3.3 L Chloride Level 104 Carbon Dioxide Level 28 Anion Gap 9 Blood Urea Nitrogen 7 Creatinine 0.92 Est Glomerular Filtrat Rate mL/min > 60 Glucose Level 100 Calcium Level 8.6 Phosphorus Level 3.3 Magnesium Level 2.1 Medications Medication Current Medications IV Flush (NS 3 ml) 3 ml PER PROTOCOL IV ; Start 12/19/18 at 00:00 Ondansetron HCl (Zofran Inj) 4 mg Q6H PRN IV NAUSEA/VOMITING Last administered on 12/19/18 13:25; Admin Dose 4 MG; Start 12/19/18 at 00:00 Acetaminophen (Tylenol Tab) 650 mg Q6H PRN PO .PAIN 1-3 OR TEMP Last administered on 12/22/18 14:56; Admin Dose 650 MG; Start 12/19/18 at 00:00 Heparin Sodium (Porcine) (Heparin (5000 Units/1ml)) 5,000 unit Q12 SC Last administered on 12/22/18 09:46; Admin Dose 5,000 UNIT; Start 12/19/18 at 09:00 Ipratropium [place] (Atrovent 0.02% (Neb)) 0.5 mg Q2H RESP THERAPY PRN NEB SHORTNESS OF BREATH; Start 12/19/18 at 00:00 Zolpidem Tartrate (Ambien) 10 mg HS PRN PO INSOMNIA; Start 12/19/18 at 00:00 Pantoprazole (Protonix Tab) 40 mg DAILY@06 PO Last administered on 12/22/18 05:43; Admin Dose 40 MG; Start 12/19/18 at 06:00 Alprazolam (Xanax) 0.25 mg Q8H PRN PO ANXIETY Last administered on 12/21/18 20:10; Admin Dose 0.25 MG; Start 12/19/18 at 10:00 Aspirin (Aspirin) 81 mg DAILY PO Last administered on 12/22/18 09:45; Admin Dose 81 MG; Start 12/20/18 at 09:00 Cholecalciferol (Vitamin D) 1,000 unit DAILY PO Last administered on 12/22/18 09:45; Admin Dose 1,000 UNIT; Start 12/20/18 at 09:00 Atorvastatin Calcium (Lipitor) 10 mg HS PO Last administered on 12/21/18 20:10; Admin Dose 10 MG; Start 12/19/18 at 21:00 Lisinopril (Zestril) 40 mg DAILY PO Last administered on 12/22/18 09:45; Admin Dose 40 MG; Start 12/19/18 at 10:30 Ibuprofen (Motrin) 400 mg Q6H PRN PO MILD PAIN(1-3) OR TEMP>38C Last ad ministered on 12/19/18 20:31; Admin Dose 400 MG; Start 12/19/18 at 16:30 Ceftriaxone Sodium 50 ml @ 100 mls/hr Q24H IVPB Last administered on 12/22/18at 15:45; Admin Dose 100 MLS/HR; Start 12/20/18 at 14:30 Fluticasone Propionate (Flonase 0.05% Nasal) 1 spray BID NASAL Last administered on 12/22/18at 09:45; Admin Dose 1 SPRAY; Start 12/21/18 at 14:00 Diphenhydramine HCl (Benadryl) 50 mg HS PRN PO insomnia; Start 12/21/18 at 13:30 Guaifenesin/ Dextromethorphan (Robitussin Dm Liquid Cup) 5 ml Q4H PRN PO cough Last administered on 12/22/18at 11:14; Admin Dose 5 ML; Start 12/22/18 at 11:00 GUSTAVO PINO MD Dec 22, 2018 17:26
[2018-12-22] MEDS: ALPRAZOLAM 0.25 MG TAB PO PRN (20:12)
[2018-12-22] MEDS: ATORVASTATIN 10 MG TAB PO SCH (20:12)
[2018-12-22 20:23] VITALS: BP 155/60; PULSE 104; RESP 18
--- NOTE | 2018-12-22 22:22 | CONS ---
Assessment/Plan Assessment/Plan Hospital Course (Demo Recall) Bacteremia Thickened aortic valve with echodense structure concerning for endocarditis Preserved left ventricular ejection fraction Newly diagnosed atrial fibrillation Hypertension Dyslipidemia Echocardiogram initially with shadowing of the aortic valve, I did request repeat imaging with focus on the aortic valve. There is evidence of restriction of leaflet with thickening and echodense structure concerning for vegetation. Given the bacteremia and these echo cardiographic findings, would treat for endocarditis Furthermore, patient with irregular rate on examination, ECG performed confirmed atrial fibrillation. He denies any history of atrial fibrillation. I will start the patient on anticoagulation, DC aspirin, heparin subcu. I did speak to the nurse taking care of the patient via telephone to discuss results to speak with the patient, he is currently sleeping, will discuss [place]. Consultation Date/Type/Reason Admit Date/Time Dec 18, 2018 at 20:30 Type of Consult Cardiology Reason for Consultation bacteremia Date/Time of Note DATE: 12/22/18 TIME: 22:15 Hx of Present Illness This is a 63-year-old male with past medical history of hypertension, dysl ipidemia who presents with fevers and chills. Patient found to be bacteremic with concern for endocarditis. Does admit to a recent dental procedure a couple months ago. Denies any other recent surgeries. He does tell me he did have rheumatic fever as a child and was on penicillin for approximately 5 years. He does also admit to significant alcohol use including one bottle of wine a day. He denies any exertional chest pain, shortness of breath or palpitations. He denies any history of irregular heartbeats 12 point review of systems was performed with all pertinent positives and negatives mentioned above and all else is negative Past Medical History Rheumatic fever Medical History: high cholesterol, hypertension Home Meds Reported Medications Sildenafil Citrate* (Sildenafil Citrate*) 20 Mg Tablet, 40 MG PO TID, TAB 12/19/18 Cholecalciferol* (Vitamin D3*) 1,000 Unit Tablet, 1000 UNIT PO DAILY, TAB 12/19/18 Alprazolam* (Xanax*) 0.25 Mg Tablet, 0.25 MG PO Q8H PRN for ANXIETY, TAB 12/19/18 Aspirin (Lauro Child) 81 Mg Chew, 81 MG PO DAILY for 90 Days, #90 12/19/18 Lisinopril* (Lisinopril*) 40 Mg Tablet, 40 MG PO DAILY for 90 Days, #90 12/19/18 Ketoconazole* (Ketoconazole*) 2% - 120 Ml Shampoo, for 30 Days 12/19/18 Pravastatin Sodium* (Pravastatin Sodium*) 10 Mg Tablet, 10 MG PO DAILY for 90 Days, #90 12/19/18 Omeprazole* (Prilosec*) 20 Mg Capsule.dr, 20 MG PO DAILY, CAP 04/27/14 Discontinued Reported Medications Dextromethorphan Hb-Promethazine Hcl* (Promethazine DM* Syrup) 473 Ml Syrup, 5 ML PO Q6 PRN for COUGH, ML 04/27/14 Levofloxacin* (Levaquin*) 500 Mg Tablet, 500 MG PO DAILY for 7 Days, TAB 04/27/14 Medications Current Medications IV Flush (NS 3 ml) 3 ml PER PROTOCOL IV ; Start 12/19/18 at 00:00 Ondansetron HCl (Zofran Inj) 4 mg Q6H PRN IV NAUSEA/VOMITING Last administered on 12/19/18at 13:25; Admin Dose 4 MG; Start 12/19/18 at 00:00 Acetaminophen (Tylenol Tab) 650 mg Q6H PRN PO .PAIN 1-3 OR TEMP Last administered on 12/22/18at 14:56; Admin Dose 650 MG; Start 12/19/18 at 00:00 Ipratropium [place] (Atrovent 0.02% (Neb)) 0.5 mg Q2H RESP THERAPY PRN NEB SHORTNESS OF BREATH; Start 12/19/18 at 00:00 Zolpidem Tartrate (Ambien) 10 mg HS PRN PO INSOMNIA; Start 12/19/18 at 00:00 Pantoprazole (Protonix Tab) 40 mg DAILY@06 PO Last administered on 12/22/18at 05:43; Admin Dose 40 MG; Start 12/19/18 at 06:00 Alprazolam (Xanax) 0.25 mg Q8H PRN PO ANXIETY Last administered on 12/22/18at 20:12; Admin Dose 0.25 MG; Start 12/19/18 at 10:00 Aspirin (Aspirin) 81 mg DAILY PO Last administered on 12/22/18at 09:45; Admin Dose 81 MG; Start 12/20/18 at 09:00 Cholecalciferol (Vitamin D) 1,000 unit DAILY PO Last administered on 12/22/18 09:45; Admin Dose 1,000 UNIT; Start 12/20/18 at 09:00 Atorvastatin Calcium (Lipitor) 10 mg HS PO Last administered on 12/22/18at 20:1 2; Admin Dose 10 MG; Start 12/19/18 at 21:00 Lisinopril (Zestril) 40 mg DAILY PO Last administered on 12/22/18 09:45; Admin Dose 40 MG; Start 12/19/18 at 10:30 Ibuprofen (Motrin) 400 mg Q6H PRN PO MILD PAIN(1-3) OR TEMP>38C Last administered on 12/19/18 20:31; Admin Dose 400 MG; Start 12/19/18 at 16:30 Ceftriaxone Sodium 50 ml @ 100 mls/hr Q24H IVPB Last administered on 12/22/18at 15:45; Admin Dose 100 MLS/HR; Start 12/20/18 at 14:30 Fluticasone Propionate (Flonase 0.05% Nasal) 1 spray BID NASAL Last administered on 12/22/18at 20:12; Admin Dose 1 SPRAY; Start 12/21/18 at 14:00 Diphenhydramine HCl (Benadryl) 50 mg HS PRN PO insomnia; Start 12/21/18 at 13:30 Guaifenesin/ Dextromethorphan (Robitussin Dm Liquid Cup) 5 ml Q4H PRN PO cough Last administered on 12/22/18at 18:16; Admin Dose 5 ML; Start 12/22/18 at 11:00 Benzonatate (Tessalon) 100 mg TID PRN PO cough; Start 12/22/18 at 17:30 Apixaban (Eliquis) 5 mg BID PO ; Start 12/22/18 at 22:30 Allergies: Coded Allergies: prochlorperazine (Verified Allergy, Unknown, 12/18/18) hyperactive Past Surgical History Past Surgical Hx: other (See HPI) Social History Alcohol Use: heavy Smoking Status: Never smoker Drug Use: none Exam/Review of Systems Vital Signs Vitals Vital Signs Date Temp Pulse Resp B/P (MAP) Pulse Ox O2 O2 Flow FiO2 Time Delivery Rate 12/22/18 99.4 104 18 155/60 98 20:23 (91) 12/22/18 Room Air 02:00 Intake and Output 12/21/18 12/21/18 12/22/18 1515:00 23:00 07:00 IntakeIntake Total 3251 ml 560 ml OutputOutput Total 1100 ml BalanceBalance 2151 ml 560 ml Exam Constitutional: alert, oriented, well developed Head: normocephalic Respiratory: clear to auscultation, normal air movement Cardiovascular: irregular rhythm (S1-S2 heard) Gastrointestinal: soft, non-tender, bowel sounds Extremities: other (no edema) Labs Result Diagram: 12/22/188 12/22/18 0448 Results 24hrs Laboratory Tests Test 12/22/18 04:48 White Blood Count 11.4 #H Red Blood Count 3.64 L Hemoglobin 11.2 L Hematocrit 33.7 L Mean Corpuscular Volume 92.6 Mean Corpuscular Hemoglobin 30.8 Mean Corpuscular Hemoglobin Concent 33.2 Red Cell Distribution Width 12.4 Platelet Count 235 # Mean Platelet Volume 10.9 H Immature Granulocytes % 0.700 H Neutrophils % 80.2 H Lymphocytes % 6.3 L Monocytes % 10.7 Eosinophils % 1.8 Basophils % 0.3 Nucleated Red Blood Cells % 0.0 Immature Granulocytes # 0.080 H Neutrophils # 9.1 H Lymphocytes # 0.7 L Monocytes # 1.2 H Eosinophils # 0.2 Basophils # 0.0 Nucleated Red Blood Cells # 0.0 Sodium Level 141 Potassium Level 3.3 L Chloride Level 104 Carbon Dioxide Level 28 Anion Gap 9 Blood Urea Nitrogen 7 Creatinine 0.92 Est Glomerular Filtrat Rate mL/min > 60 Glucose Level 100 Calcium Level 8.6 Phosphorus Level 3.3 Magnesium Level 2.1 Medications Medications Current Medications IV Flush (NS 3 ml) 3 ml PER PROTOCOL IV ; Start 12/19/18 at 00:00 Ondansetron HCl (Zofran Inj) 4 mg Q6H PRN IV NAUSEA/VOMITING Last administered on 12/19/18at 13:25; Admin Dose 4 MG; Start 12/19/18 at 00:00 Acetaminophen (Tylenol Tab) 650 mg Q6H PRN PO .PAIN 1-3 OR TEMP Last admi nistered on 12/22/18at 14:56; Admin Dose 650 MG; Start 12/19/18 at 00:00 Ipratropium [place] (Atrovent 0.02% (Neb)) 0.5 mg Q2H RESP THERAPY PRN NEB SHORTNESS OF BREATH; Start 12/19/18 at 00:00 Zolpidem Tartrate (Ambien) 10 mg HS PRN PO INSOMNIA; Start 12/19/18 at 00:00 Pantoprazole (Protonix Tab) 40 mg DAILY@06 PO Last administered on 12/22/18 05:43; Admin Dose 40 MG; Start 12/19/18 at 06:00 Alprazolam (Xanax) 0.25 mg Q8H PRN PO ANXIETY Last administered on 12/22/18 20:12; Admin Dose 0.25 MG; Start 12/19/18 at 10:00 Aspirin (Aspirin) 81 mg DAILY PO Last administered on 12/22/18 09:45; Admin Dose 81 MG; Start 12/20/18 at 09:00 Cholecalciferol (Vitamin D) 1,000 unit DAILY PO Last administered on 12/22/18 09:45; Admin Dose 1,000 UNIT; Start 12/20/18 at 09:00 Atorvastatin Calcium (Lipitor) 10 mg HS PO Last administered on 12/22/18 20:12; Admin Dose 10 MG; Start 12/19/18 at 21:00 Lisinopril (Zestril) 40 mg DAILY PO Last administered on 12/22/18 09:45; Admin Dose 40 MG; Start 12/19/18 at 10:30 Ibuprofen (Motrin) 400 mg Q6H PRN PO MILD PAIN(1-3) OR TEMP>38C Last administered on 12/19/18 20:31; Admin Dose 400 MG; Start 12/19/18 at 16:30 Ceftriaxone Sodium 50 ml @ 100 mls/hr Q24H IVPB Last administered on 12/22/18 15:45; Admin Dose 100 MLS/HR; Start 12/20/18 at 14:30 Fluticasone Propionate (Flonase 0.05% Nasal) 1 spray BID NASAL Last administered on 12/22/18 20:12; Admin Dose 1 SPRAY; Start 12/21/18 at 14:00 Diphenhydramine HCl (Benadryl) 50 mg HS PRN PO insomnia; Start 12/21/18 at 13:30 Guaifenesin/ Dextromethorphan (Robitussin Dm Liquid Cup) 5 ml Q4H PRN PO cough Last administered on 12/22/18at 18:16; Admin Dose 5 ML; Start 12/22/18 at 11:00 Benzonatate (Tessalon) 100 mg TID PRN PO cough; Start 12/22/18 at 17:30 Apixaban (Eliquis) 5 mg BID PO ; Start 12/22/18 at 22:30 Glen Vega DO Dec 22, 2018 22:22
[2018-12-22] MEDS: APIXABAN 5 MG TABLET PO SCH (23:05)
[2018-12-22] MEDS: ONDANSETRON 4 MG INJ IV PRN (23:09)
[2018-12-23 02:42] VITALS: BP 123/63; PULSE 99; RESP 16
[2018-12-23] MEDS: PANTOPRAZOLE (EC) 40 MG TAB PO SCH (05:35)
[2018-12-23] MEDS: ALPRAZOLAM 0.25 MG TAB PO PRN ×3 (05:38→22:23)
[2018-12-23] MEDS: ONDANSETRON 4 MG INJ IV PRN (05:38)
[2018-12-23] MEDS: BENZONATATE 100 MG CAP PO PRN ×3 (05:47→22:23)
[2018-12-23 08:37] VITALS: BP 114/55; PULSE 90; RESP 18
[2018-12-23] MEDS: FLUTICASONE 0.05% 16 GM NAS SPRAY NASAL SCH ×2 (09:09→20:25)
[2018-12-23] MEDS: CHOLECALCIFEROL 1,000 UNIT TAB PO SCH (09:09)
[2018-12-23] MEDS: APIXABAN 5 MG TABLET PO SCH ×2 (09:09→20:25)
[2018-12-23] MEDS: LISINOPRIL 20 MG TAB PO SCH (09:11)
[2018-12-23 14:48] VITALS: BP 129/70; PULSE 96; RESP 18
--- NOTE | 2018-12-23 15:29 | PN ---
Date/Time of Note Date/Time of Note DATE: 12/23/18 TIME: 15:24 Assessment/Plan VTE Prophylaxis Risk score (from Ns)>0 risk: 4 SCD applied (from [facility] [place]): No SCD contraindicated: low risk/ambulating Pharmacological prophylaxis: NA/contraindicated Pharm contraindication: low risk/ambulating Lines/Catheters [facility] (from [facility] Saline Lock Urinary Cath still in place: No Assessment/Plan Assessment/Plan 1. Sepsis secondary to Endocarditis bacteremia - ID on board for antibiotic recommendations. Will need PICC line placement and IV antibiotics for 6 weeks - still with low grade temps - UCx negative and CXR negative for PNA - repeat blood cultures negative 2. Post nasal drip - on Flonase - cough suppressant PRN 3. Strep Bacteremia - Cardiology consultation appreciated and shadow noted on aortic valve. Will treat for endocarditis - ID on board and appreciate recommendations - Patient does have a history of rheumatic disease - Patient also has recent dental work and crown has been bothering him. CT face negative for acute issues 4. Insomnia - Benadryl as needed per patient request 5. Anemia - Mild - Monitor outpatient 6. Disposition - Will need PICC line placement and HH for antibiotics - Once afebrile for 24 hours, will d/c home. Discussed with patient and at bedside Result Diagram: 12/23/18 0533 12/23/18 0533 Results 24hrs Laboratory Tests Test 12/23/18 05:33 White Blood Count 11.5 H Red Blood Count 3.52 L Hemoglobin 10.7 L Hematocrit 32.4 L Mean Corpuscular Volume 92.0 Mean Corpuscular Hemoglobin 30.4 Mean Corpuscular Hemoglobin Concent 33.0 Red Cell Distribution Width 12.4 Platelet Count 251 Mean Platelet Volume 10.4 Immature Granulocytes % 1.000 H Neutrophils % 73.8 Lymphocytes % 7.2 L Monocytes % 16.4 H Eosinophils % 1.3 Basophils % 0.3 Nucleated Red Blood Cells % 0.0 Immature Granulocytes # 0.110 H Neutrophils # 8.4 H Lymphocytes # 0.8 Monocytes # 1.9 H Eosinophils # 0.2 Basophils # 0.0 Nucleated Red Blood Cells # 0.0 Sodium Level 139 Potassium Level 4.1 Chloride Level 103 Carbon Dioxide Level 29 Anion Gap 7 Blood Urea Nitrogen 7 Creatinine 0.89 Glucose Level 103 Calcium Level 8.4 Phosphorus Level 4.0 Magnesium Level 2.0 Albumin 2.9 L Subjective 24 Hr Interval Summary Free Text/Dictation Patient doing well and all questions addressed. Still with low grade temps. Exam/Review of Systems Exam Vitals Vital Signs Date Temp Pulse Resp B/P (MAP) Pulse Ox O2 O2 Flow FiO2 Time Delivery Rate 12/23/18 99.3 96 18 129/70 95 Room Air 14:48 (89) Intake and Output 12/22/18 12/22/18 12/23/18 1515:00 23:00 07:00 IntakeIntake Total 1550 ml BalanceBalance 1550 ml Exam General: Patient is laying in bed and answers questions appropriately Neck: Supple Respiratory: Clear to auscultation bilaterally. no wheezing or rhonchi Cardiovascular: regular rate and rhythm, no obvious murmurs Gastrointestinal: soft, non-tender to palpation, nondistended, bowel sounds heard. Neurological: Moves all extremities spontaneously Skin: No new skin lesions Results Results 24hrs Laboratory Tests Test 12/23/18 05:33 White Blood Count 11.5 H Red Blood Count 3.52 L Hemoglobin 10.7 L Hematocrit 32.4 L Mean Corpuscular Volume 92.0 Mean Corpuscular Hemoglobin 30.4 Mean Corpuscular Hemoglobin Concent 33.0 Red Cell Distribution Width 12.4 Platelet Count 251 Mean Platelet Volume 10.4 Immature Granulocytes % 1.000 H Neutrophils % 73.8 Lymphocytes % 7.2 L Monocytes % 16.4 H Eosinophils % 1.3 Basophils % 0.3 Nucleated Red Blood Cells % 0.0 Immature Granulocytes # 0.110 H Neutrophils # 8.4 H Lymphocytes # 0.8 Monocytes # 1.9 H Eosinophils # 0.2 Basophils # 0.0 Nucleated Red Blood Cells # 0.0 Sodium Level 139 Potassium Level 4.1 Chloride Level 103 Carbon Dioxide Level 29 Anion Gap 7 Blood Urea Nitrogen 7 Creatinine 0.89 Glucose Level 103 Calcium Level 8.4 Phosphorus Level 4.0 Magnesium Level 2.0 Albumin 2.9 L Medications Medication Current Medications IV Flush (NS 3 ml) 3 ml PER PROTOCOL IV ; Start 12/19/18 at 00:00 Ondansetron HCl (Zofran Inj) 4 mg Q6H PRN IV NAUSEA/VOMITING Last administered on 12/23/18at 05:38; Admin Dose 4 MG; Start 12/19/18 at 00:00 Acetaminophen (Tylenol Tab) 650 mg Q6H PRN PO .PAIN 1-3 OR TEMP Last administered on 12/22/18 14:56; Admin Dose 650 MG; Start 12/19/18 at 00:00 Ipratropium [place] (Atrovent 0.02% (Neb)) 0.5 mg Q2H RESP THERAPY PRN NEB SHORTNESS OF BREATH; Start 12/19/18 at 00:00 Zolpidem Tartrate (Ambien) 10 mg HS PRN PO INSOMNIA; Start 12/19/18 at 00:00 Pantoprazole (Protonix Tab) 40 mg DAILY@06 PO Last administered on 12/23/18 05:35; Admin Dose 40 MG; Start 12/19/18 at 06:00 Alprazolam (Xanax) 0.25 mg Q8H PRN PO ANXIETY Last administered on 12/23/18 13:58; Admin Dose 0.25 MG; Start 12/19/18 at 10:00 Cholecalciferol (Vitamin D) 1,000 unit DAILY PO Last administered on 12/23/18 09:09; Admin Dose 1,000 UNIT; Start 12/20/18 at 09:00 Atorvastatin Calcium (Lipitor) 10 mg HS PO Last administered on 12/22/18 20:12; Admin Dose 10 MG; Start 12/19/18 at 21:00 Lisinopril (Zestril) 40 mg DAILY PO Last administered on 12/23/18 09:11; Admin Dose 40 MG; Start 12/19/18 at 10:30 Ibuprofen (Motrin) 400 mg Q6H PRN PO MILD PAIN(1-3) OR TEMP>38C Last administered on 12/19/18 20:31; Admin Dose 400 MG; Start 12/19/18 at 16:30 Ceftriaxone Sodium 50 ml @ 100 mls/hr Q24H IVPB Last administered on 12/22/18 15:45; Admin Dose 100 MLS/HR; Start 12/20/18 at 14:30 Fluticasone Propionate (Flonase 0.05% Nasal) 1 spray BID NASAL Last administered on 12/23/18 09:09; Admin Dose 1 SPRAY; Start 12/21/18 at 14:00 Diphenhydramine HCl (Benadryl) 50 mg HS PRN PO insomnia; Start 12/21/18 at 13:30 Guaifenesin/ Dextromethorphan (Robitussin Dm Liquid Cup) 5 ml Q4H PRN PO cough Last administered on 12/22/18at 18:16; Admin Dose 5 ML; Start 12/22/18 at 11:00 Benzonatate (Tessalon) 100 mg TID PRN PO cough Last administered on 12/23/18at 13:58; Admin Dose 100 MG; Start 12/22/18 at 17:30 Apixaban (Eliquis) 5 mg BID PO Last administered on 12/23/18at 09:09; Admin Dose 5 MG; Start 12/22/18 at 22:30 GUSTAVO PINO MD Dec 23, 2018 15:29
--- NOTE | 2018-12-23 15:55 | CONS ---
Assessment/Plan Assessment/Plan Hospital Course (Demo Recall) Patient is alert eating lunch looks comfortable he is afebrile Microbiology: Blood culture grew strep on admission repeat blood cultures negative Physical examination: Well-developed elderly man who is alert in no distress. Head atraumatic normocephalic neck is supple chest rise symmetrical breath sounds clear heart: S1-S2. Abdomen soft bowel sounds present. Extremities without cyanosis Assessment: 1. Strep bacteremia 2. Aortic valve endocarditis 3. History of prostatectomy Plan: Remains stable, cardiology recommendations noted, repeat blood cultures negative, consider PICC line placement and discharge home on IV Rocephin for 6 weeks Discussed with patient and family at bedside Consultation Date/Type/Reason Admit Date/Time Dec 18, 2018 at 20:30 Initial Consult Date Type of Consult id Date/Time of Note DATE: 12/23/18 TIME: 15:50 Exam/Review of Systems Exam Vitals Vital Signs Date Temp Pulse Resp B/P (MAP) Pulse Ox O2 O2 Flow FiO2 Time Delivery Rate 12/23/18 99.3 96 18 129/70 95 Room Air 14:48 (89) Intake and Output 12/22/18 12/22/18 12/23/18 1515:00 23:00 07:00 IntakeIntake Total 1550 ml BalanceBalance 1550 ml Results Result Diagram: 12/23/18 0533 12/23/18 0533 Results 24hrs Laboratory Tests Test 12/23/18 05:33 White Blood Count 11.5 H Red Blood Count 3.52 L Hemoglobin 10.7 L Hematocrit 32.4 L Mean Corpuscular Volume 92.0 Mean Corpuscular Hemoglobin 30.4 Mean Corpuscular Hemoglobin Concent 33.0 Red Cell Distribution Width 12.4 Platelet Count 251 Mean Platelet Volume 10.4 Immature Granulocytes % 1.000 H Neutrophils % 73.8 Lymphocytes % 7.2 L Monocytes % 16.4 H Eosinophils % 1.3 Basophils % 0.3 Nucleated Red Blood Cells % 0.0 Immature Granulocytes # 0.110 H Neutrophils # 8.4 H Lymphocytes # 0.8 Monocytes # 1.9 H Eosinophils # 0.2 Basophils # 0.0 Nucleated Red Blood Cells # 0.0 Sodium Level 139 Potassium Level 4.1 Chloride Level 103 Carbon Dioxide Level 29 Anion Gap 7 Blood Urea Nitrogen 7 Creatinine 0.89 Glucose Level 103 Calcium Level 8.4 Phosphorus Level 4.0 Magnesium Level 2.0 Albumin 2.9 L Medications Medication Current Medications IV Flush (NS 3 ml) 3 ml PER PROTOCOL IV ; Start 12/19/18 at 00:00 Ondansetron HCl (Zofran Inj) 4 mg Q6H PRN IV NAUSEA/VOMITING Last administered on 12/23/18 05:38; Admin Dose 4 MG; Start 12/19/18 at 00:00 Acetaminophen (Tylenol Tab) 650 mg Q6H PRN PO .PAIN 1-3 OR TEMP Last administered on 12/22/18 14:56; Admin Dose 650 MG; Start 12/19/18 at 00:00 Ipratropium [place] (Atrovent 0.02% (Neb)) 0.5 mg Q2H RESP THERAPY PRN NEB SHORTNESS OF BREATH; Start 12/19/18 at 00:00 Zolpidem Tartrate (Ambien) 10 mg HS PRN PO INSOMNIA; Start 12/19/18 at 00:00 Pantoprazole (Protonix Tab) 40 mg DAILY@06 PO Last administered on 12/23/18 05:35; Admin Dose 40 MG; Start 12/19/18 at 06:00 Alprazolam (Xanax) 0.25 mg Q8H PRN PO ANXIETY Last administered on 12/23/18 1 3:58; Admin Dose 0.25 MG; Start 12/19/18 at 10:00 Cholecalciferol (Vitamin D) 1,000 unit DAILY PO Last administered on 12/23/18 09:09; Admin Dose 1,000 UNIT; Start 12/20/18 at 09:00 Atorvastatin Calcium (Lipitor) 10 mg HS PO Last administered on 12/22/18 20:12; Admin Dose 10 MG; Start 12/19/18 at 21:00 Lisinopril (Zestril) 40 mg DAILY PO Last administered on 12/23/18 09:11; Admin Dose 40 MG; Start 12/19/18 at 10:30 Ibuprofen (Motrin) 400 mg Q6H PRN PO MILD PAIN(1-3) OR TEMP>38C Last admin istered on 12/19/18 20:31; Admin Dose 400 MG; Start 12/19/18 at 16:30 Ceftriaxone Sodium 50 ml @ 100 mls/hr Q24H IVPB Last administered on 12/22/18 15:45; Admin Dose 100 MLS/HR; Start 12/20/18 at 14:30 Fluticasone Propionate (Flonase 0.05% Nasal) 1 spray BID NASAL Last administered on 12/23/18 09:09; Admin Dose 1 SPRAY; Start 12/21/18 at 14:00 Diphenhydramine HCl (Benadryl) 50 mg HS PRN PO insomnia; Start 12/21/18 at 13:30 Guaifenesin/ Dextromethorphan (Robitussin Dm Liquid Cup) 5 ml Q4H PRN PO cough Last administered on 12/22/18 18:16; Admin Dose 5 ML; Start 12/22/18 at 11:00 Benzonatate (Tessalon) 100 mg TID PRN PO cough Last administered on 12/23/18 13:58; Admin Dose 100 MG; Start 12/22/18 at 17:30 Apixaban (Eliquis) 5 mg BID PO Last administered on 12/23/18 09:09; Admin Dose 5 MG; Start 12/22/18 at 22:30 BRIE MARI NP Dec 23, 2018 15:55
[2018-12-23] MEDS: CEFTRIAXONE 2 GM/50 ML (PMX) 50 ML IVPB SCH (16:00)
[2018-12-23] MEDS ORDERED: LIDOCAINE 1% (MPF) 5 ML VIAL SC ONE (16:30)
[2018-12-23] MEDS: METOPROLOL (XL) 50 MG TAB PO SCH (17:15)
--- NOTE | 2018-12-23 18:36 | CONS ---
Assessment/Plan Assessment/Plan Hospital Course (Demo Recall) Bacteremia Thickened aortic valve with echodense structure concerning for endocarditis Preserved left ventricular ejection fraction Newly diagnosed atrial fibrillation Hypertension Dyslipidemia On examination, heart rhythm appears more regular with occasional irregularities after initiation of Toprol-XL. Would continue, check ECG in a.m. Continue anticoagulation as tolerated, discuss with the patient Antibiotics as per infectious disease DC planning Consultation Date/Type/Reason Admit Date/Time Dec 18, 2018 at 20:30 Initial Consult Date Type of Consult Cardiology Date/Time of Note DATE: 12/23/18 TIME: 18:35 24 HR Interval Summary Free Text/Dictation Denies palpitations, shortness of breath or chest pain Exam/Review of Systems Vital Signs Vitals Vital Signs Date Temp Pulse Resp B/P (MAP) Pulse Ox O2 O2 Flow FiO2 Time Delivery Rate 12/23/18 99.3 96 18 129/70 95 Room Air 14:48 (89) Intake and Output 12/22/18 12/22/18 12/23/18 1515:00 23:00 07:00 IntakeIntake Total 1550 ml BalanceBalance 1550 ml Exam Constitutional: alert, oriented (No apparent distress) Head: normocephalic Respiratory: clear to auscultation, normal air movement Cardiovascular: regular rate and rhythm (With occasional irregularities) Gastrointestinal: soft, non-tender, bowel sounds Extremities: other (No significant edema) Labs Result Diagram: 12/23/18 0533 12/23/18 0533 Results 24hrs Laboratory Tests Test 12/23/18 05:33 White Blood Count 11.5 H Red Blood Count 3.52 L Hemoglobin 10.7 L Hematocrit 32.4 L Mean Corpuscular Volume 92.0 Mean Corpuscular Hemoglobin 30.4 Mean Corpuscular Hemoglobin Concent 33.0 Red Cell Distribution Width 12.4 Platelet Count 251 Mean Platelet Volume 10.4 Immature Granulocytes % 1.000 H Neutrophils % 73.8 Lymphocytes % 7.2 L Monocytes % 16.4 H Eosinophils % 1.3 Basophils % 0.3 Nucleated Red Blood Cells % 0.0 Immature Granulocytes # 0.110 H Neutrophils # 8.4 H Lymphocytes # 0.8 Monocytes # 1.9 H Eosinophils # 0.2 Basophils # 0.0 Nucleated Red Blood Cells # 0.0 Sodium Level 139 Potassium Level 4.1 Chloride Level 103 Carbon Dioxide Level 29 Anion Gap 7 Blood Urea Nitrogen 7 Creatinine 0.89 Glucose Level 103 Calcium Level 8.4 Phosphorus Level 4.0 Magnesium Level 2.0 Albumin 2.9 L Medications Medications Current Medications IV Flush (NS 3 ml) 3 ml PER PROTOCOL IV ; Start 12/19/18 at 00:00 Ondansetron HCl (Zofran Inj) 4 mg Q6H PRN IV NAUSEA/VOMITING Last administered on 12/23/18 05:38; Admin Dose 4 MG; Start 12/19/18 at 00:00 Acetaminophen (Tylenol Tab) 650 mg Q6H PRN PO .PAIN 1-3 OR TEMP Last administered on 12/22/18 14:56; Admin Dose 650 MG; Start 12/19/18 at 00:00 Ipratropium [place] (Atrovent 0.02% (Neb)) 0.5 mg Q2H RESP THERAPY PRN NEB SHORTNESS OF BREATH; Start 12/19/18 at 00:00 Zolpidem Tartrate (Ambien) 10 mg HS PRN PO INSOMNIA; Start 12/19/18 at 00:00 Pantoprazole (Protonix Tab) 40 mg DAILY@06 PO Last administered on 12/23/18 05:35; Admin Dose 40 MG; Start 12/19/18 at 06:00 Alprazolam (Xanax) 0.25 mg Q8H PRN PO ANXIETY Last administered on 12/23/18 13:58; Admin Dose 0.25 MG; Start 12/19/18 at 10:00 Cholecalciferol (Vitamin D) 1,000 unit DAILY PO Last administered on 12/23/18 09:09; Admin Dose 1,000 UNIT; Start 12/20/18 at 09:00 Atorvastatin Calcium (Lipitor) 10 mg HS PO Last administered on 12/22/18 20:12; Admin Dose 10 MG; Start 12/19/18 at 21:00 Lisinopril (Zestril) 40 mg DAILY PO Last administered on 12/23/18 09:11; Admin Dose 40 MG; Start 12/19/18 at 10:30 Ibuprofen (Motrin) 400 mg Q6H PRN PO MILD PAIN(1-3) OR TEMP>38C Last administered on 12/19/18 20:31; Admin Dose 400 MG; Start 12/19/18 at 16:30 Ceftriaxone Sodium 50 ml @ 100 mls/hr Q24H IVPB Last administered on 12/23/18 16:00; Admin Dose 100 MLS/HR; Start 12/20/18 at 14:30 Fluticasone Propionate (Flonase 0.05% Nasal) 1 spray BID NASAL Last administered on 12/23/18 09:09; Admin Dose 1 SPRAY; Start 12/21/18 at 14:00 Diphenhydramine HCl (Benadryl) 50 mg HS PRN PO insomnia; Start 12/21/18 at 13:30 Guaifenesin/ Dextromethorphan (Robitussin Dm Liquid Cup) 5 ml Q4H PRN PO cough Last administered on 12/22/18 18:16; Admin Dose 5 ML; Start 12/22/18 at 11:00 Benzonatate (Tessalon) 100 mg TID PRN PO cough Last administered on 12/23/18 13:58; Admin Dose 100 MG; Start 12/22/18 at 17:30 Apixaban (Eliquis) 5 mg BID PO Last administered on 12/23/18 09:09; Admin Dose 5 MG; Start 12/22/18 at 22:30 Metoprolol Succinate (Toprol Xl) 50 mg DAILY PO Last administered on 12/23/18 17:15; Admin Dose 50 MG; Start 12/23/18 at 16:30 Glen Vega DO Dec 23, 2018 18:36
--- NOTE | 2018-12-23 19:21 | RADRPT ---
Echocardiogram Report Patient Name: MIA BERNSTEINPatient ID: [id number] : 1955 (63y 2m)Study Date: 12/22/2018 1:16:36 PM Gender: MAccession #: [id number] Tech: Geremias Enriquez [facility] Location: 2254 Ref.Physician: GRIFFIN ALVA Height(Cm): BSA: Weight(Kg): Quality: AdequateOrder Physician: GRIFFIN ALVA Account #: Procedures: Echocardiographic Report: Transthoracic echocardiogram examination. Indications: Endocarditis. Findings: Left Ventricle: The left ventricular ejection fraction is visually estimated at 60 %. Mitral Valve: Normal appearance of the mitral valve leaflets. Aortic Valve: Thickening and calcification of aortic valve leaflets with echo dense structure seen on ventricular side of the aortic valve concerning for endocarditis. Tricuspid Valve: Normal appearance of the tricuspid valve. Conclusions: The left ventricular ejection fraction is visually estimated at 60 %. Thickening and calcification of aortic valve leaflets with echo dense structure seen on ventricular side of the aortic valve concerning for endocarditis. Electronically Signed By: Griffin Alva 2018-12-23 19:20:29 PDT
[2018-12-23 20:01] VITALS: BP 128/67; PULSE 90; RESP 16
[2018-12-23] MEDS: ATORVASTATIN 10 MG TAB PO SCH (20:25)
[2018-12-23] MEDS: ACETAMINOPHEN 325 MG TAB PO PRN (20:26)
[2018-12-24 02:39] VITALS: BP 128/63; PULSE 73; RESP 16
[2018-12-24] MEDS: PANTOPRAZOLE (EC) 40 MG TAB PO SCH (05:48)
[2018-12-24] MEDS: ALPRAZOLAM 0.25 MG TAB PO PRN (08:06)
[2018-12-24] MEDS: CHOLECALCIFEROL 1,000 UNIT TAB PO SCH (08:07)
[2018-12-24] MEDS: METOPROLOL (XL) 50 MG TAB PO SCH (08:07)
[2018-12-24] MEDS: BENZONATATE 100 MG CAP PO PRN (08:07)
[2018-12-24] MEDS: LISINOPRIL 20 MG TAB PO SCH (08:07)
[2018-12-24] MEDS: FLUTICASONE 0.05% 16 GM NAS SPRAY NASAL SCH (08:08)
[2018-12-24] MEDS: APIXABAN 5 MG TABLET PO SCH (08:08)
[2018-12-24 08:16] VITALS: BP 142/73; PULSE 77; RESP 18
--- NOTE | 2018-12-24 11:35 | CONS ---
Assessment/Plan Assessment/Plan Hospital Course (Demo Recall) Bacteremia Thickened aortic valve with echodense structure concerning for endocarditis Preserved left ventricular ejection fraction Newly diagnosed atrial fibrillation, paroxysmal Hypertension Dyslipidemia Patient with regular rate and ECG confirmed sinus rhythm Continue Toprol-XL Continue anticoagulation as tolerated, discuss with the patient Antibiotics as per infectious disease DC planning Consultation Date/Type/Reason Admit Date/Time Dec 18, 2018 at 20:30 Initial Consult Date Type of Consult Cardiology Date/Time of Note DATE: 12/24/18 TIME: 11:34 24 HR Interval Summary Free Text/Dictation No palpitations, shortness of breath, dizziness Exam/Review of Systems Vital Signs Vitals Vital Signs Date Temp Pulse Resp B/P (MAP) Pulse Ox O2 O2 Flow FiO2 Time Delivery Rate 12/24/18 99.0 77 18 142/73 94 Room Air 08:16 (96) Intake and Output 12/23/18 12/23/18 12/24/18 1515:00 23:00 07:00 IntakeIntake Total 880 ml 510 ml BalanceBalance 880 ml 510 ml Exam Constitutional: alert, oriented (No apparent distress) Head: normocephalic Respiratory: clear to auscultation, normal air movement Cardiovascular: regular rate and rhythm (S1-S2 heard) Gastrointestinal: soft, non-tender, bowel sounds Extremities: other (No significant edema) Labs Result Diagram: 12/24/18 0552 12/24/18 0551 Results 24hrs Laboratory Tests Test 12/24/18 05:51 12/24/18 05:52 Sodium Level 141 Potassium Level 3.9 Chloride Level 102 Carbon Dioxide Level 31 Anion Gap 8 Blood Urea Nitrogen 6 L Creatinine 0.90 Glucose Level 102 Calcium Level 8.5 Phosphorus Level 4.4 Magnesium Level 2.2 Albumin 3.1 L White Blood Count 11.0 H Red Blood Count 3.33 L Hemoglobin 10.3 L Hematocrit 31.0 L Mean Corpuscular Volume 93.1 Mean Corpuscular Hemoglobin 30.9 Mean Corpuscular Hemoglobin Concent 33.2 Red Cell Distribution Width 12.1 Platelet Count 279 Mean Platelet Volume 9.9 Immature Granulocytes % 1.900 H Neutrophils % 71.2 Lymphocytes % 6.0 L Monocytes % 18.3 H Eosinophils % 2.0 Basophils % 0.6 Nucleated Red Blood Cells % 0.0 Immature Granulocytes # 0.210 H Neutrophils # 7.8 H Lymphocytes # 0.7 L Monocytes # 2.0 H Eosinophils # 0.2 Basophils # 0.1 Nucleated Red Blood Cells # 0.0 Medications Medications Current Medications IV Flush (NS 3 ml) 3 ml PER PROTOCOL IV ; Start 12/19/18 at 00:00 Ondansetron HCl (Zofran Inj) 4 mg Q6H PRN IV NAUSEA/VOMITING Last administered on 12/23/18 05:38; Admin Dose 4 MG; Start 12/19/18 at 00:00 Acetaminophen (Tylenol Tab) 650 mg Q6H PRN PO .PAIN 1-3 OR TEMP Last administered on 12/23/18 20:26; Admin Dose 650 MG; Start 12/19/18 at 00:00 Ipratropium [place] (Atrovent 0.02% (Neb)) 0.5 mg Q2H RESP THERAPY PRN NEB SHOR TNESS OF BREATH; Start 12/19/18 at 00:00 Zolpidem Tartrate (Ambien) 10 mg HS PRN PO INSOMNIA; Start 12/19/18 at 00:00 Pantoprazole (Protonix Tab) 40 mg DAILY@06 PO Last administered on 12/24/18 05:48; Admin Dose 40 MG; Start 12/19/18 at 06:00 Alprazolam (Xanax) 0.25 mg Q8H PRN PO ANXIETY Last administered on 12/24/18 08:06; Admin Dose 0.25 MG; Start 12/19/18 at 10:00 Cholecalciferol (Vitamin D) 1,000 unit DAILY PO Last administered on 12/24/18 08:07; Admin Dose 1,000 UNIT; Start 12/20/18 at 09:00 Atorvastatin Calcium (Lipitor) 10 mg HS PO Last administered on 12/23/18 20:25; Admin Dose 10 MG; Start 12/19/18 at 21:00 Lisinopril (Zestril) 40 mg DAILY PO Last administered on 12/24/18 08:07; Admin Dose 40 MG; Start 12/19/18 at 10:30 Ibuprofen (Motrin) 400 mg Q6H PRN PO MILD PAIN(1-3) OR TEMP>38C Last administered on 12/19/18 20:31; Admin Dose 400 MG; Start 12/19/18 at 16:30 Ceftriaxone Sodium 50 ml @ 100 mls/hr Q24H IVPB Last administered on 12/23/18 16:00; Admin Dose 100 MLS/HR; Start 12/20/18 at 14:30 Fluticasone Propionate (Flonase 0.05% Nasal) 1 spray BID NASAL Last administered on 12/24/18 08:08; Admin Dose 1 SPRAY; Start 12/21/18 at 14:00 Diphenhydramine HCl (Benadryl) 50 mg HS PRN PO insomnia; Start 12/21/18 at 13:30 Guaifenesin/ Dextromethorphan (Robitussin Dm Liquid Cup) 5 ml Q4H PRN PO cough Last administered on 12/22/18 18:16; Admin Dose 5 ML; Start 12/22/18 at 11:00 Benzonatate (Tessalon) 100 mg TID PRN PO cough Last administered on 12/24/18 08:07; Admin Dose 100 MG; Start 12/22/18 at 17:30 Apixaban (Eliquis) 5 mg BID PO Last administered on 12/24/18 08:08; Admin Dose 5 MG; Start 12/22/18 at 22:30 Metoprolol Succinate (Toprol Xl) 50 mg DAILY PO Last administered on 12/24/18 08:07; Admin Dose 50 MG; Start 12/23/18 at 16:30 Glen Vega DO Dec 24, 2018 11:35
[2018-12-24] MEDS ORDERED: APIX5TAB PO ×2 (12:14→16:56)
--- NOTE | 2018-12-24 13:14 | PN ---
Date/Time of Note Date/Time of Note DATE: 12/24/18 TIME: 13:10 Assessment/Plan VTE Prophylaxis Risk score (from Ns)>0 risk: 4 SCD applied (from Ns): No SCD contraindicated: low risk/ambulating Pharmacological prophylaxis: apixaban Lines/Catheters IV Catheter Type (from Nrs): PICC Line Central line still needed: Yes Urinary Cath still in place: No Assessment/Plan Assessment/Plan 1. Sepsis secondary to Endocarditis bacteremia- improving - Will need to continue on IV antibiotics for 6 weeks. PICC line placed and CM consulted to arrange for HH - UCx negative and CXR negative for PNA - repeat blood cultures negative 2. Arrhythmia - continue on Toprol XL - continue on Eliquis. Discussed risk on bleeding and will need to go to ER if experiences any head trauma or cuts that do not stop bleeding. Also discussed will need to avoid ETOH while on IV antibiotics and blood thinners 3. Post nasal drip- improving - on Flonase - cough suppressant PRN 4. Strep Bacteremia - Cardiology consultation appreciated and shadow noted on aortic valve. Will treat for endocarditis - ID on board and appreciate recommendations - Patient does have a history of rheumatic disease - Patient also has recent dental work and crown has been bothering him. CT face negative for acute issues 5. Insomnia - Benadryl as needed per patient request 6. Anemia - Mild - Monitor outpatient 7. ETOH use - patient states he no longer drinks alcohol and counseled to avoid while on IV antibiotics and blood thinners 8. Disposition - CM consulted for HH for IV antibiotics. Once arrangements finalized, will d/c home Result Diagram: 12/24/18 0552 12/24/18 0551 Results 24hrs Laboratory Tests Test 12/24/18 05:51 12/24/18 05:52 Sodium Level 141 Potassium Level 3.9 Chloride Level 102 Carbon Dioxide Level 31 Anion Gap 8 Blood Urea Nitrogen 6 L Creatinine 0.90 Glucose Level 102 Calcium Level 8.5 Phosphorus Level 4.4 Magnesium Level 2.2 Albumin 3.1 L White Blood Count 11.0 H Red Blood Count 3.33 L Hemoglobin 10.3 L Hematocrit 31.0 L Mean Corpuscular Volume 93.1 Mean Corpuscular Hemoglobin 30.9 Mean Corpuscular Hemoglobin Concent 33.2 Red Cell Distribution Width 12.1 Platelet Count 279 Mean Platelet Volume 9.9 Immature Granulocytes % 1.900 H Neutrophils % 71.2 Lymphocytes % 6.0 L Monocytes % 18.3 H Eosinophils % 2.0 Basophils % 0.6 Nucleated Red Blood Cells % 0.0 Immature Granulocytes # 0.210 H Neutrophils # 7.8 H Lymphocytes # 0.7 L Monocytes # 2.0 H Eosinophils # 0.2 Basophils # 0.1 Nucleated Red Blood Cells # 0.0 Subjective 24 Hr Interval Summary Free Text/Dictation Patient doing well and denies any acute issues. All questions addressed and discussed risk of bleeding while on Eliquis. No acute overnight events. Exam/Review of Systems Exam Vitals Vital Signs Date Temp Pulse Resp B/P (MAP) Pulse Ox O2 O2 Flow FiO2 Time Delivery Rate 12/24/18 99.0 77 18 142/73 94 Room Air 08:16 (96) Intake and Output 12/23/18 12/23/18 12/24/18 1515:00 23:00 07:00 IntakeIntake Total 880 ml 510 ml BalanceBalance 880 ml 510 ml Exam General: Patient is laying in bed and answers questions appropriately Neck: Supple Respiratory: Clear to auscultation bilaterally. no wheezing or rhonchi Cardiovascular: regular rate and rhythm, no obvious murmurs Gastrointestinal: soft, non-tender to palpation, nondistended, bowel sounds heard. Neurological: Moves all extremities spontaneously Skin: No new skin lesions Results Results 24hrs Laboratory Tests Test 12/24/18 05:51 12/24/18 05:52 Sodium Level 141 Potassium Level 3.9 Chloride Level 102 Carbon Dioxide Level 31 Anion Gap 8 Blood Urea Nitrogen 6 L Creatinine 0.90 Glucose Level 102 Calcium Level 8.5 Phosphorus Level 4.4 Magnesium Level 2.2 Albumin 3.1 L White Blood Count 11.0 H Red Blood Count 3.33 L Hemoglobin 10.3 L Hematocrit 31.0 L Mean Corpuscular Volume 93.1 Mean Corpuscular Hemoglobin 30.9 Mean Corpuscular Hemoglobin Concent 33.2 Red Cell Distribution Width 12.1 Platelet Count 279 Mean Platelet Volume 9.9 Immature Granulocytes % 1.900 H Neutrophils % 71.2 Lymphocytes % 6.0 L Monocytes % 18.3 H Eosinophils % 2.0 Basophils % 0.6 Nucleated Red Blood Cells % 0.0 Immature Granulocytes # 0.210 H Neutrophils # 7.8 H Lymphocytes # 0.7 L Monocytes # 2.0 H Eosinophils # 0.2 Basophils # 0.1 Nucleated Red Blood Cells # 0.0 Medications Medication Current Medications IV Flush (NS 3 ml) 3 ml PER PROTOCOL IV ; Start 12/19/18 at 00:00 Ondansetron HCl (Zofran Inj) 4 mg Q6H PRN IV NAUSEA/VOMITING Last administered on 12/23/18 05:38; Admin Dose 4 MG; Start 12/19/18 at 00:00 Acetaminophen (Tylenol Tab) 650 mg Q6H PRN PO .PAIN 1-3 OR TEMP Last administered on 12/23/18 20:26; Admin Dose 650 MG; Start 12/19/18 at 00:00 Ipratropium [place] (Atrovent 0.02% (Neb)) 0.5 mg Q2H RESP THERAPY PRN NEB SHORTNESS OF BREATH; Start 12/19/18 at 00:00 Zolpidem Tartrate (Ambien) 10 mg HS PRN PO INSOMNIA; Start 12/19/18 at 00:00 Pantoprazole (Protonix Tab) 40 mg DAILY@06 PO Last administered on 12/24/18 05:48; Admin Dose 40 MG; Start 12/19/18 at 06:00 Alprazolam (Xanax) 0.25 mg Q8H PRN PO ANXIETY Last administered on 12/24/18 08:06; Admin Dose 0.25 MG; Start 12/19/18 at 10:00 Cholecalciferol (Vitamin D) 1,000 unit DAILY PO Last administered on 12/24/18 08:07; Admin Dose 1,000 UNIT; Start 12/20/18 at 09:00 Atorvastatin Calcium (Lipitor) 10 mg HS PO Last administered on 12/23/18 20:25; Admin Dose 10 MG; Start 12/19/18 at 21:00 Lisinopril (Zestril) 40 mg DAILY PO Last administered on 12/24/18 08:07; Admin Dose 40 MG; Start 12/19/18 at 10:30 Ibuprofen (Motrin) 400 mg Q6H PRN PO MILD PAIN(1-3) OR TEMP>38C Last administered on 12/19/18 20:31; Admin Dose 400 MG; Start 12/19/18 at 16:30 Ceftriaxone Sodium 50 ml @ 100 mls/hr Q24H IVPB Last administered on 12/23/18 16:00; Admin Dose 100 MLS/HR; Start 12/20/18 at 14:30 Fluticasone Propionate (Flonase 0.05% Nasal) 1 spray BID NASAL Last adm inistered on 12/24/18 08:08; Admin Dose 1 SPRAY; Start 12/21/18 at 14:00 Diphenhydramine HCl (Benadryl) 50 mg HS PRN PO insomnia; Start 12/21/18 at 13:30 Guaifenesin/ Dextromethorphan (Robitussin Dm Liquid Cup) 5 ml Q4H PRN PO cough Last administered on 12/22/18 18:16; Admin Dose 5 ML; Start 12/22/18 at 11:00 Benzonatate (Tessalon) 100 mg TID PRN PO cough Last administered on 12/24/18 08:07; Admin Dose 100 MG; Start 12/22/18 at 17:30 Apixaban (Eliquis) 5 mg BID PO Last administered on 12/24/18 08:08; Admin Dose 5 MG; Start 12/22/18 at 22:30 Metoprolol Succinate (Toprol Xl) 50 mg DAILY PO Last administered on 12/24/18 08:07; Admin Dose 50 MG; Start 12/23/18 at 16:30 GUSTAVO PINO MD Dec 24, 2018 13:14
[2018-12-24] MEDS ORDERED: FLUT16SP17 NASAL (13:18)
[2018-12-24] MEDS ORDERED: METO-319 PO (13:18)
[2018-12-24] MEDS ORDERED: BENZ-5 PO (13:18)
--- NOTE | 2018-12-24 13:23 | PDOCDIS ---
Discharge Instructions DIAGNOSIS Discharge Diagnosis 1. Sepsis secondary to Endocarditis bacteremia 2. Post nasal drip 3. Strep Bacteremia 4. Insomnia 5. Anemia, Mild 6. Newly diagnosed atrial fibrillation, paroxysmal 7. Hypertension CONDITION [id number] Patient Condition: [id number] Stable HOME CARE INSTRUCTIONS: [id number] Diet Instructions: [id number] Low Fat /Cholesterol ACTIVITY: [id number] Activity Restrictions: [id number] No Restrictions FOLLOW UP/APPOINTMENTS Follow-up Plan 1. Follow up with your primary care physician in 1-2 weeks 2. Follow up with Dr. Vega in 2-3 weeks 3. Take all medications as prescribed 4. Since you are on a blood thinner due to your arrhythmia, you need to be more conscious about when you cut yourself and if experiencing any falls with head trauma since you have a higher risk of bleeding. Please go to the emergency department if experiencing any profuse bleeding or head trauma. You will need to avoid NSAIDs as they thin blood as well 5. If experiencing any concerning symptoms, please go to the closest emergency department REFERRALS Other Referrals Glen Vega, DO Specialty Interventional Cardiology Comments Office Address [facility] [id number] [place] [address] Office GUSTAVO PINO MD Dec 24, 2018 13:23
[2018-12-24 14:26] VITALS: BP 137/65; PULSE 76; RESP 18
[2018-12-24] MEDS: CEFTRIAXONE 2 GM/50 ML (PMX) 50 ML IVPB SCH (15:28)
--- NOTE | 2018-12-24 15:57 | CONS ---
Assessment/Plan Assessment/Plan Hospital Course (Demo Recall) No events Microbiology: Blood culture grew strep on admission repeat blood cultures negative Abx: Rocephin Physical examination: Well-developed elderly man who is alert in no distress. Head atraumatic normocephalic neck is supple chest rise symmetrical breath sounds clear heart: S1-S2. Abdomen soft bowel sounds present. Extremities without cyanosis Assessment: 1. Strep bacteremia 2. Aortic valve endocarditis 3. History of prostatectomy Plan: Remains stable, repeat blood cultures negative, pending discharge home on IV Rocephin for 6 weeks Discussed with patient and family at bedside Consultation Date/Type/Reason Admit Date/Time Dec 18, 2018 at 20:30 Initial Consult Date Type of Consult id Date/Time of Note DATE: 12/24/18 TIME: 15:56 Exam/Review of Systems Exam Vitals Vital Signs Date Temp Pulse Resp B/P (MAP) Pulse Ox O2 O2 Flow FiO2 Time Delivery Rate 12/24/18 98.6 76 18 137/65 96 14:26 (89) 12/24/18 Room Air 08:16 Intake and Output 12/23/18 12/23/18 12/24/18 1515:00 23:00 07:00 IntakeIntake Total 880 ml 510 ml BalanceBalance 880 ml 510 ml Results Result Diagram: 12/24/18 0552 12/24/18 0551 Results 24hrs Laboratory Tests Test 12/24/18 05:51 12/24/18 05:52 Sodium Level 141 Potassium Level 3.9 Chloride Level 102 Carbon Dioxide Level 31 Anion Gap 8 Blood Urea Nitrogen 6 L Creatinine 0.90 Glucose Level 102 Calcium Level 8.5 Phosphorus Level 4.4 Magnesium Level 2.2 Albumin 3.1 L White Blood Count 11.0 H Red Blood Count 3.33 L Hemoglobin 10.3 L Hematocrit 31.0 L Mean Corpuscular Volume 93.1 Mean Corpuscular Hemoglobin 30.9 Mean Corpuscular Hemoglobin Concent 33.2 Red Cell Distribution Width 12.1 Platelet Count 279 Mean Platelet Volume 9.9 Immature Granulocytes % 1.900 H Neutrophils % 71.2 Lymphocytes % 6.0 L Monocytes % 18.3 H Eosinophils % 2.0 Basophils % 0.6 Nucleated Red Blood Cells % 0.0 Immature Granulocytes # 0.210 H Neutrophils # 7.8 H Lymphocytes # 0.7 L Monocytes # 2.0 H Eosinophils # 0.2 Basophils # 0.1 Nucleated Red Blood Cells # 0.0 Medications Medication Current Medications IV Flush (NS 3 ml) 3 ml PER PROTOCOL IV ; Start 12/19/18 at 00:00 Ondansetron HCl (Zofran Inj) 4 mg Q6H PRN IV NAUSEA/VOMITING Last administered on 12/23/18 05:38; Admin Dose 4 MG; Start 12/19/18 at 00:00 Acetaminophen (Tylenol Tab) 650 mg Q6H PRN PO .PAIN 1-3 OR TEMP Last administered on 12/23/18 20:26; Admin Dose 650 MG; Start 12/19/18 at 00:00 Ipratropium [place] (Atrovent 0.02% (Neb)) 0.5 mg Q2H RESP THERAPY PRN NEB SHORTNESS OF BREATH; Start 12/19/18 at 00:00 Zolpidem Tartrate (Ambien) 10 mg HS PRN PO INSOMNIA; Start 12/19/18 at 00:00 Pantoprazole (Protonix Tab) 40 mg DAILY@06 PO Last administered on 12/24/18 05:48; Admin Dose 40 MG; Start 12/19/18 at 06:00 Alprazolam (Xanax) 0.25 mg Q8H PRN PO ANXIETY Last administered on 12/24/18 08:06; Admin Dose 0.25 MG; Start 12/19/18 at 10:00 Cholecalciferol (Vitamin D) 1,000 unit DAILY PO Last administered on 12/24/18 08:07; Admin Dose 1,000 UNIT; Start 12/20/18 at 09:00 Atorvastatin Calcium (Lipitor) 10 mg HS PO Last administered on 12/23/18 20:25; Admin Dose 10 MG; Start 12/19/18 at 21:00 Lisinopril (Zestril) 40 mg DAILY PO Last administered on 12/24/18 08:07; Admin Dose 40 MG; Start 12/19/18 at 10:30 Ibuprofen (Motrin) 400 mg Q6H PRN PO MILD PAIN(1-3) OR TEMP>38C Last administered on 12/19/18 20:31; Admin Dose 400 MG; Start 12/19/18 at 16:30 Ceftriaxone Sodium 50 ml @ 100 mls/hr Q24H IVPB Last administered on 12/24/18 15:28; Admin Dose 100 MLS/HR; Start 12/20/18 at 14:30 Fluticasone Propionate (Flonase 0.05% Nasal) 1 spray BID NASAL Last administered on 12/24/18 08:08; Admin Dose 1 SPRAY; Start 12/21/18 at 14:00 Diphenhydramine HCl (Benadryl) 50 mg HS PRN PO insomnia; Start 12/21/18 at 13:30 Guaifenesin/ Dextromethorphan (Robitussin Dm Liquid Cup) 5 ml Q4H PRN PO cough Last administered on 12/22/18 18:16; Admin Dose 5 ML; Start 12/22/18 at 11:00 Benzonatate (Tessalon) 100 mg TID PRN PO cough Last administered on 12/24/18 08:07; Admin Dose 100 MG; Start 12/22/18 at 17:30 Apixaban (Eliquis) 5 mg BID PO Last administered on 12/24/18at 08:08; Admin Dose 5 MG; Start 12/22/18 at 22:30 Metoprolol Succinate (Toprol Xl) 50 mg DAILY PO Last administered on 12/24/18 08:07; Admin Dose 50 MG; Start 12/23/18 at 16:30 IV Flush (NS 10 ml) 10 ml PRN PRN IV IV PROTOCOL; Start 12/24/18 at 13:30 BRIE MARI NP Dec 24, 2018 15:57
--- NOTE | 2018-12-24 18:29 | DS ---
Date/Time of Note Date/Time of Note DATE: 12/24/18 TIME: 18:29 Discharge Summary Admission/Discharge Info Admit Date/Time Dec 18, 2018 at 20:30 Discharge Date/Time Dec 24, 2018 at 16:55 Discharge Diagnosis 1. Sepsis secondary to Endocarditis bacteremia 2. Post nasal drip 3. Strep Bacteremia 4. Insomnia 5. Anemia, Mild 6. Newly diagnosed atrial fibrillation, paroxysmal 7. Hypertension Patient Condition: Stable Consults Cardiology- Dr. Vega Infectious disease- Dr. Thomas Hx of Present Illness This is a 63-year-old male with a history of hypertension, anemia, GERD, prostate cancer status post removal in March of last year. Patient presents the ER complaining of fever/chills, shortness of breath, dry cough, which started few hours ago around 1700. He also reported lack of energy and vague muscular type pain in the groin area and in the upper thigh, which she attributed to possible flu. He said he checked his temperature at home. Initially it was 100.8 with repeat being around 101.4. Denied sick contact, recent travel. He said he had similar symptoms 5 years ago for which he said he came to the hospital and was treated for pneumonia in the ER. When he presented to the ER, he was febrile with a temperature of 102.4, tachycardic with a heart rate of 129. Blood pressure 172/91. WBC 20,000. Hospital Course Patient was admitted for sepsis workup and started on broad spectrum antibiotics given suspicion for URI as etiology of fever. Infectious disease was consulted for antibiotic recommendations. Patients blood cultures returned positive for strep and he was changed to IV rocephin. Given patients history of rheumatic disease as a child, ECHO was performed with suspicion for endocarditis. Cardiology was consulted and recommended to proceed with treatment for endocarditis. Patient was also noted to have paroxysmal atrial fibrillation and started on BB as well as Eliquis. Patients heart rate remained controlled during course of hospitalization after initiation of Toprol XL. PICC line was placed and arranged for IV antibiotics. Patient was counseled to refrain from any alcohol intake given on IV antibiotics and blood thinner. Patients co ndition improved and vitals remained stable. Patient was tolerating PO intake and ambulating without any issues. He was discharged home in stable condition with home health services. Home Meds Active Scripts Apixaban* (Eliquis*) 5 Mg Tablet, 5 MG PO BID for 30 Days, #60 TAB 2 Refills Prov:GUSTAVO PINO MD 12/24/18 Fluticasone Propionate* (Fluticasone Propionate* Nasal) 50 Mcg/[place] - 16 Gm [place].susp, 1 SPRAY NASAL BID for 30 Days, #1 BOT Prov:GUSTAVO PINO MD 12/24/18 Benzonatate* (Benzonatate*) 100 Mg Capsule, 100 MG PO TID PRN for cough for 30 Days, #90 CAP Prov:GUSTAVO PINO MD 12/24/18 Metoprolol Succinate* (Toprol XL*) 50 Mg Tab.er.24h, 50 MG PO DAILY for 30 Days, #30 TAB 1 Refill Prov:GUSTAVO PINO MD 12/24/18 Reported Medications Sildenafil Citrate* (Sildenafil Citrate*) 20 Mg Tablet, 40 MG PO TID, TAB 12/19/18 Cholecalciferol* (Vitamin D3*) 1,000 Unit Tablet, 1000 UNIT PO DAILY, TAB 12/19/18 Alprazolam* (Xanax*) 0.25 Mg Tablet, 0.25 MG PO Q8H PRN for ANXIETY, TAB 12/19/18 Lisinopril* (Lisinopril*) 40 Mg Tablet, 40 MG PO DAILY for 90 Days, #90 12/19/18 Pravastatin Sodium* (Pravastatin Sodium*) 10 Mg Tablet, 10 MG PO DAILY for 90 Days, #90 12/19/18 Omeprazole* (Prilosec*) 20 Mg Capsule.dr, 20 MG PO DAILY, CAP 04/27/14 Discontinued Reported Medications Aspirin (Lauro Child) 81 Mg Chew, 81 MG PO DAILY for 90 Days, #90 12/19/18 Ketoconazole* (Ketoconazole*) 2% - 120 Ml Shampoo, for 30 Days 12/19/18 Dextromethorphan Hb-Promethazine Hcl* (Promethazine DM* Syrup) 473 Ml Syrup, 5 ML PO Q6 PRN for COUGH, ML 04/27/14 Levofloxacin* (Levaquin*) 500 Mg Tablet, 500 MG PO DAILY for 7 Days, TAB 04/27/14 Follow-up Plan 1. Follow up with your primary care physician in 1-2 weeks 2. Follow up with Dr. Vega in 2-3 weeks 3. Take all medications as prescribed 4. Since you are on a blood thinner due to your arrhythmia, you need to be more conscious about when you cut yourself and if experiencing any falls with head trauma since you have a higher risk of bleeding. Please go to the emergency department if experiencing any profuse bleeding or head trauma. You will need to avoid NSAIDs as they thin blood as well 5. If experiencing any concerning symptoms, please go to the closest emergency department Primary Care Provider Not On Staff Doctor Time spent on discharge: > 30 minutes Pending Labs Laboratory Tests Test 12/24/18 05:51 12/24/18 05:52 Sodium Level 141 mmol/L (135-144) Potassium Level 3.9 mmol/L (3.5-5.1) Chloride Level 102 mmol/L (97-110) Carbon Dioxide Level 31 mmol/L (21-31) Anion Gap 8 (5-13) Blood Urea Nitrogen 6 mg/dl (7-20) Creatinine 0.90 mg/dl (0.61-1.24) Glucose Level 102 mg/dl (70-220) Calcium Level 8.5 mg/dl (8.4-10.2) Phosphorus Level 4.4 mg/dl (2.5-4.9) Magnesium Level 2.2 mg/dl (1.7-2.5) Albumin 3.1 g/dl (3.3-4.9) White Blood Count 11.0 10^3/ul (4.8-10.8) Red Blood Count 3.33 10^6/ul (4.70-6.10) Hemoglobin 10.3 g/dl (14.0-18.0) Hematocrit 31.0 % (42.0-52.0) Mean Corpuscular Volume 93.1 fl (82.0-101.0) Mean Corpuscular Hemoglobin 30.9 pg (29.0-33.0) Mean Corpuscular 33.2 g/dl (32.0-37.0) Hemoglobin Concent Red Cell Distribution Width 12.1 % (11.5-14.5) Platelet Count 279 10^3/UL (140-415) Mean Platelet Volume 9.9 fl (7.4-10.4) Immature Granulocytes % 1.900 % (0.001-0.429) Neutrophils % 71.2 % (39.0-77.0) Lymphocytes % 6.0 % (15.0-51.0) Monocytes % 18.3 % (0.0-11.0) Eosinophils % 2.0 % (0.0-7.0) Basophils % 0.6 % (0.0-2.0) Nucleated Red Blood Cells % 0.0 /100WBC (0.0-0.0) Immature Granulocytes # 0.210 10^3/ul (0.0-0.031) Neutrophils # 7.8 10^3/ul (1.6-7.5) Lymphocytes # 0.7 10^3/ul (0.8-2.9) Monocytes # 2.0 10^3/ul (0.3-0.9) Eosinophils # 0.2 10^3/ul (0.0-0.5) Basophils # 0.1 10^3/ul (0.0-0.1) Nucleated Red Blood Cells # 0.0 10^3/ul (0.0-0.0) GUSTAVO PINO MD Dec 24, 2018 18:29
--- NOTE | 2018-12-25 17:09 | RADRPT ---
Vent Rate: 77 bpm RR Interval: 780 msec [place] Interval: 199 msec QRS Duration: 88 msec QT Interval: 374 msec QTC Interval: 423 msec P-R-T [place]: 41 - 42 - 41 degrees Sinus rhythm...normal P axis, V-rate 50- 99 Electronically Signed By: Syed Holder
--- NOTE | 2018-12-25 17:14 | RADRPT ---
Vent Rate: 126 bpm RR Interval: 482 msec [place] Interval: [id number] msec QRS Duration: 69 msec QT Interval: 300 msec QTC Interval: 432 msec P-R-T [place]: [id number] - 17 - 4 degrees Atrial fibrillation...? atrial activity Electronically Signed By: Syed Holder
== END 2018-12-24 16:55 | disposition home health service (06) | DRG 871 ==
LOC: E/R 18:48 → PP2 20:30
PROVIDERS: ADMIT Internal Medicine; ATTEND Internal Medicine
PROC: 02HV33Z Insertion of Infusion Device into Superior Vena Cava, Percutaneous Approach (ICD-10-PCS; principal; 2018-12-24)
DX: A40.8 Other streptococcal sepsis (principal); I33.9 Acute and subacute endocarditis, unspecified; N17.9 Acute kidney failure, unspecified; J20.9 Acute bronchitis, unspecified; D64.9 Anemia, unspecified; I10 Essential (primary) hypertension; M16.0 Bilateral primary osteoarthritis of hip; M17.0 Bilateral primary osteoarthritis of knee; E78.5 Hyperlipidemia, unspecified; G47.00 Insomnia, unspecified; R09.82 Postnasal drip; I48.0 Paroxysmal atrial fibrillation; Z85.46 Personal history of malignant neoplasm of prostate
CPT/HCPCS: 36415; 36569; 70486; 71045; 73520; 73562; 76937; 80048; 80053; 80069; 81003; 82962; 83605; 83735; 84100; 84484; 85025; 85610; 85730; 86703; 86704; 86709; 86803; 87086; 87340; 87400; 93005; 93306; 93308; 96374; C1769; J0456; J0696; J1644; J1956; J2405; J3370; J7030; J7050

== ENCOUNTER 2018-12-26 09:04 | Emergency (ER) | payer OTHER ==
[~2018-12-26] VITALS: Ht 182.9 cm; Wt 72.0 kg
[~2018-12-26 09:04] MED LIST changes: +ALPR0.25 PO; +APIX5TAB PO; +BENZ-5 PO; +CHOL100062 PO; -D-ME473S2 PO; +FLUT16SP17 NASAL; -LEVO500T48 PO; +LISI40TA3 PO; +METO-319 PO; +PRAV10TA43 PO; +SILD20TA PO
[2018-12-26 09:09] VITALS: Ht 182.9 cm; Wt 72.0 kg
[2018-12-26] MEDS ORDERED: LIDOCAINE 1% (MPF) 5 ML VIAL SC ONE (10:00)
[2018-12-26] MEDS ORDERED: DOXY100T20 PO (11:47)
--- NOTE | 2018-12-26 12:23 | ERD ---
ER Documentation Chief Complaint Chief Complaint pt is bib self with c/o PICC line reddness to left arm dx sepsis, HPI Very pleasant 63-year-old gentleman with recent hospitalization and antibiotic therapy through PICC line for endocarditis. The patient was just discharged. He notes redness swelling and warmth to the site around the left upper extremity PICC line. No fevers or chills. He received 1 dose of Rocephin at home from home health care nurse. Patient denies any significant pain but does have some discomfort around the erythema and warmth of the left upper extremity. ROS All systems reviewed and are negative except as per history of present illness. Medications Home Meds Active Scripts Doxycycline Hyclate* (Doxycycline Hyclate*) 100 Mg Tablet., 100 MG PO BID for 10 Days, TAB Prov:SUKUMAR COLINDRES MD 12/26/18 Apixaban* (Eliquis*) 5 Mg Tablet, 5 MG PO BID for 30 Days, #60 TAB 2 Refills Prov:GUSTAVO PINO MD 12/24/18 Fluticasone Propionate* (Fluticasone Propionate* Nasal) 50 Mcg/[place] - 16 Gm [place].susp, 1 SPRAY NASAL BID for 30 Days, #1 BOT Prov:GUSTAVO PINO MD 12/24/18 Benzonatate* (Benzonatate*) 100 Mg Capsule, 100 MG PO TID PRN for cough for 30 Days, #90 CAP Prov:GUSTAVO PINO MD 12/24/18 Reported Medications Sildenafil Citrate* (Sildenafil Citrate*) 20 Mg Tablet, 40 MG PO NEEDED, TAB 12/19/18 Cholecalciferol* (Vitamin D3*) 1,000 Unit Tablet, 1000 UNIT PO DAILY, TAB 12/19/18 Alprazolam* (Xanax*) 0.25 Mg Tablet, 0.25 MG PO Q8H PRN for ANXIETY, TAB 12/19/18 Lisinopril* (Lisinopril*) 40 Mg Tablet, 40 MG PO DAILY for 90 Days, #90 12/19/18 Pravastatin Sodium* (Pravastatin Sodium*) 10 Mg Tablet, 10 MG PO DAILY for 90 Days, #90 12/19/18 Omeprazole* (Prilosec*) 20 Mg Capsule.dr, 20 MG PO DAILY, CAP 04/27/14 Discontinued Reported Medications Aspirin (Lauro Child) 81 Mg Chew, 81 MG PO DAILY for 90 Days, #90 12/19/18 Ketoconazole* (Ketoconazole*) 2% - 120 Ml Shampoo, for 30 Days 12/19/18 Dextromethorphan Hb-Promethazine Hcl* (Promethazine DM* Syrup) 473 Ml Syrup, 5 ML PO Q6 PRN for COUGH, ML 04/27/14 Levofloxacin* (Levaquin*) 500 Mg Tablet, 500 MG PO DAILY for 7 Days, TAB 04/27/14 Discontinued Scripts Metoprolol Succinate* (Toprol XL*) 50 Mg Tab.er.24h, 50 MG PO DAILY for 30 Days, #30 TAB 1 Refill Prov:GUSTAVO PINO MD 12/24/18 Allergies Allergies: Coded Allergies: prochlorperazine (Verified Allergy, Unknown, 12/26/18) hyperactive PMhx/Soc History of Surgery: Yes (prostate removed 03/18, gallbladder removed 1998) Anesthesia Reaction: No Hx Neurological Disorder: No Hx Respiratory Disorders: No Hx Cardiac Disorders: Yes (HTN) Hx Psychiatric Problems: No Hx Miscellaneous Medical Probl: No Hx Alcohol Use: Yes (12 oz wine) Hx Substance Use: No Hx Tobacco Use: No Smoking Status: Never smoker FmHx Family History: No diabetes Physical Exam Vitals Vital Signs Date Temp Pulse Resp B/P (MAP) Pulse Ox O2 O2 Flow FiO2 Time Delivery Rate 12/26/18 98.3 92 18 126/74 98 09:09 (91) Physical Exam General: Well developed, well nourished, no acute distress Head: Normocephalic, atraumatic. Eyes: Pupils equally reactive, EOM intact ENT: Moist mucous membranes Neck: Supple, no lymphadenopathy Respiratory: Lungs clear bilaterally, no distress Cardiovascular: RRR, no murmurs, rubs, or gallops Abdominal: Soft, non-tender, non-distended, no peritoneal signs : Deferred MSK: Left upper extremity PICC line in good position with surrounding erythema warmth and tenderness with mild induration. Neurologic: Alert and oriented, moving all extremities, normal speech, no focal weakness, no cerebellar signs Skin: No rash Psych: Normal mood Result Diagram: 12/26/18 1029 12/26/18 1029 Results 24 hrs Laboratory Tests Test 12/26/18 10:29 White Blood Count 11.7 10^3/ul Red Blood Count 3.84 10^6/ul Hemoglobin 11.6 g/dl Hematocrit 34.4 % Mean Corpuscular Volume 89.6 fl Mean Corpuscular Hemoglobin 30.2 pg Mean Corpuscular Hemoglobin Concent 33.7 g/dl Red Cell Distribution Width 12.0 % Platelet Count 418 10^3/UL Mean Platelet Volume 9.8 fl Immature Granulocytes % 1.800 % Neutrophils % 74.7 % Lymphocytes % 6.2 % Monocytes % 15.6 % Eosinophils % 1.3 % Basophils % 0.4 % Nucleated Red Blood Cells % 0.0 /100WBC Immature Granulocytes # 0.210 10^3/ul Neutrophils # 8.7 10^3/ul Lymphocytes # 0.7 10^3/ul Monocytes # 1.8 10^3/ul Eosinophils # 0.2 10^3/ul Basophils # 0.1 10^3/ul Nucleated Red Blood Cells # 0.0 10^3/ul Sodium Level 139 mmol/L Potassium Level 3.5 mmol/L Chloride Level 100 mmol/L Carbon Dioxide Level 29 mmol/L Anion Gap 10 Blood Urea Nitrogen 9 mg/dl Creatinine 0.94 mg/dl Est Glomerular Filtrat Rate mL/min > 60 mL/min Glucose Level 150 mg/dl Calcium Level 8.9 mg/dl Current Medications Medications Dose Sig/Lionel Start Time Status Last (Trade) Ordered Route PRN Stop Time Admin Dose Reason Admin Lidocaine 5 ml ONCE ONCE 12/26/18 DC (Xylocaine SC 10:00 1% (Mpf)) 12/26/18 10:15 Procedures/MDM EKG, MONITORS, & DIAGNOSTIC IMAGING: Left upper extremity duplex: IMPRESSION: 1. No evidence of a deep vein thrombosis involving the left upper extremity. 2. Left basilic PICC line with left basilic superficial thrombophlebitis. LAB INTERPRETATION: I reviewed the laboratory testing and it shows no evidence of acute process MEDICAL DECISION MAKING: The patient has evidence of a left upper extremity PICC line infection, cellulitis versus superficial thrombophlebitis. Lower concern for DVT. PICC line needs to be removed and cultured. I discussed the case with infectious disease specialist Dr. Thomas who has cared for the patient. We discussed my plan of removal of the PICC line, culture of the tip and blood cultures. We discussed placing a peripheral IV for several days until blood cultures result is negative and then PICC line in the right upper extremity can be placed on an outpatient basis. He feels very comfortable this plan. He recommends doxycycline and outpatient basis to cover MRSA ER COURSE: * Patient had PICC line removal. PICC line was removed by myself without co mplication, the tip of the catheter was intact and placed in a specimen cup and sent to the lab * Laboratory testing reassuring * Peripheral IV was placed and the patient can be discharged with peripheral IV for several days and outpatient PICC line has been scheduled for Saturday. Return precautions were discussed and understood. Cellulitis area was demarcated with a skin marker CONSULTATION: infectious disease, Dr. Thomas DISPOSITION PLAN: The patient does not have an identifiable emergent medical condition that warrants inpatient hospitalization at this time. The patient is deemed safe for discharge with outpatient follow-up. We discussed follow up with the patient's primary care doctor within 24 to 48 hours as needed. We also discussed return to the emergency room for worsening symptoms or worsening condition. Outpatient referral: None required Discharge Medications: Doxycycline added to home IV Rocephin Departure Diagnosis: Primary Impression: Cellulitis of left upper extremity Additional Impression: PICC line infection Encounter type: initial encounter Qualified Codes: T80.219A - Unspecified infection due to central venous catheter, initial encounter Condition: Stable Patient Instructions: Cellulitis Referrals: [facility] YOU HAVE RECEIVED A MEDICAL SCREENING EXAM AND THE RESULTS INDICATE THAT YOU DO NOT HAVE A CONDITION THAT REQUIRES URGENT TREATMENT IN THE EMERGENCY DEPARTMENT. FURTHER EVALUATION AND TREATMENT OF YOUR CONDITION CAN WAIT UNTIL YOU ARE SEEN I N YOUR DOCTORS OFFICE WITHIN THE NEXT 1-2 DAYS. IT IS YOUR RESPONSIBILITY TO MAKE AN APPOINTMENT FOR FOLOW-UP CARE. IF YOU HAVE A PRIMARY DOCTOR --you should call your primary doctor and schedule an appointment IF YOU DO NOT HAVE A PRIMARY DOCTOR YOU CAN CALL OUR PHYSICIAN REFERRAL HOTLINE AT IF YOU CAN NOT AFFORD TO SEE A PHYSICIAN YOU CAN CHOSE FROM THE FOLLOWING [facility] [address] [facility] [address] [facility] [address] [facility] [address] [facility] [facility] [address] [facility] [facility] [address] [facility]. [facility] YOU HAVE RECEIVED A MEDICAL SCREENING EXAM AND THE RESULTS INDICATE THAT YOU DO NOT HAVE A CONDITION THAT REQUIRES URGENT TREATMENT IN THE EMERGENCY DEPARTMENT. FURTHER EVALUATION AND TREATMENT OF YOUR CONDITION CAN WAIT UNTIL YOU ARE SEEN IN YOUR DOCTORS OFFICE WITHIN THE NEXT 1-2 DAYS. IT IS YOUR RESPONSIBILITY TO MAKE AN APPOINTMENT FOR FOLOW-UP CARE. IF YOU HAVE A PRIMARY DOCTOR --you should call your primary doctor and schedule and appointment IF YOU DO NOT HAVE A PRIMARY DOCTOR YOU CAN CALL OUR PHYSICIAN REFERRAL HOTLINE AT . IF YOU CAN NOT AFFORD TO SEE A PHYSICIAN YOU CAN CHOSE FROM THE FOLLOWING [facility]: [facility] [id number] [place] [id number] [facility] [address] [place], [place] [id number] [place] [address] [address] [place] [address] Additional Instructions: Return on Saturday for PICC line placement and removal of the peripheral IV. Return sooner for any fevers or chills or worsening spreading redness. SUKUMAR COLINDRES MD Dec 26, 2018 12:23
[2018-12-26 12:43] VITALS: BP 130/77; PULSE 88; RESP 20
== END 2018-12-26 12:46 | disposition home or self-care (01) ==
LOC: E/R 09:04
DX: L03.114 Cellulitis of left upper limb (principal); I10 Essential (primary) hypertension; Y71.2 Prosthetic and other implants, materials and accessory cardiovascular devices associated with adverse incidents; Z79.01 Long term (current) use of anticoagulants
CPT/HCPCS: 36415; 80048; 85025; 87070; 93971

== ENCOUNTER → 2018-12-29 | Outpatient (CLI) | payer OTHER ==
[~2018-12-29] MED LIST changes: +DOXY100T20 PO; +LIDOCAINE 1% (MPF) 5 ML VIAL SC ONE; -METO-319 PO
== END | disposition home or self-care (01) ==
LOC: RAD 09:15
PROVIDERS: ATTEND Internal Medicine Infectious Disease
DX: I38 Endocarditis, valve unspecified (principal)
CPT/HCPCS: 36569; 71045; 76937; 93971